=== PATIENT | male | born 1950 | race Caucasian/White ===

== ENCOUNTER → 2016-06-13 09:13 | Outpatient (CLI) | payer MEDICARE | END | disposition home or self-care (01) | LOC: D.RT 06-09 10:00 → D.RAD 06-09 11:15 → D.LAB 06-09 11:30 → D.RT 09:13 | DX: J44.9 Chronic obstructive pulmonary disease, unspecified (principal) ==

== ENCOUNTER → 2016-07-17 09:42 | Outpatient (CLI) | payer MEDICARE | END | disposition home or self-care (01) | LOC: D.US 07-10 11:30 | DX: I70.213 Atherosclerosis of native arteries of extremities with intermittent claudication, bilateral legs (principal) ==

== ENCOUNTER → 2016-08-01 06:58 | Outpatient (CLI) | payer MEDICARE | END | disposition home or self-care (01) | LOC: D.CT 06:58 | DX: I73.9 Peripheral vascular disease, unspecified (principal); R94.2 Abnormal results of pulmonary function studies ==

== ENCOUNTER 2016-10-09 06:30 | Outpatient (CLI) | payer MEDICARE ==
[~2016-10-09] VITALS: Ht 170.2 cm; Wt 100.0 kg
--- NOTE | ~2016-10-09 | HEMODYNAMI ---
PATIENT:JUD RIOS MEDICAL RECORD: [id number] : 46 LOCATION:[facility] ADMISSION DATE: 10/09/16 Generatedon:10/09/201611:41 Patient name: JUD RIOS Patient #: [id number] SSN: : 1950 Date of study: 10/09/2016 Page: Of Hemodynamic Procedure Report Patient Data Patient Demographics Procedure consent was obtained First Name: JUD Gender: Male Last Name: GABRIEL : 1950 [facility] Initial: TRISTON Age: 66 year(s) Patient #: [id number] Race: Unknown Additional ID: [id number] Contact details Address: [address] [place] [address] State: [place] City: [place] Zip code: [address] Past Medical History Allergies: No known allergies Admission Admission Data Admission Date: 10/09/2016 Admission Time: 6:30 Procedure Procedure Types Cath Procedure Peripheral Cath Diagnostic Procedure Cath Peripheral Abd/Extremity Extremities Bilat Lower Extremity Procedure Description Procedure Date Procedure Date: 10/09/2016 Procedure Start Time: 10:34 Procedure Staff Name Function Keri Hodgson RT Flat Folding Machine Operator Keri Hodgson RT Monitor Jesús Galarza RT Scrub Samir Liz MD Performing Physician Zahida Hidalgo RN Nurse Procedure Data Cath Procedure Fluoroscopy Diagnostic fluoroscopy Total fluoroscopy Time: 9.3 time: 9.3 min min Diagnostic fluoroscopy Total fluoroscopy dose: 771 dose: 771 mGy mGy Contrast Material Contrast Material Type Amount (ml) Isovue 300 65 Entry Location Entry Primary Successful Side Size Upsize Upsize Entry Closure Succes sful Closure Location (Fr) 1 (Fr) 2 (Fr) Remarks Device Remarks Femoral Right artery Femoral Mynx artery Nathaniel 6Fr/7Fr Diagnostic catheters Device Type Used For End Catheter Placement Diagnostic 5Fr IMT Catheter Procedure Medications Medication Administration Route Dosage Nitroglycerin IC/IA I.A. 300 mcg Heparin Bolus I.V. 5000 units Fentanyl I.V. 50 mcg Versed I.V. 1 mg Fentanyl I.V. 50 mcg Versed I.V. 1 mg Hemodynamics Rest Heart Rate: 98 (bpm) Snapshots Pre Cath Intra NCS Post Cath Vital Signs Time Heart Resp SPO2 NIBP (mmHg) Rhythm Pain Sedation Rate (ipm) (%) Status Level (bpm) 9:52:05 101 14 96 Measuring NSR 0 (11) 10(A) , No pain 9:52:57 99 14 96 211/120(174) NSR 0 (11) 10(A) , No pain 9:57:39 97 26 97 200/108(157) NSR 0 (11) 10(A) , No pain 10:02:20 97 20 95 213/117(156) NSR 0 (11) 10(A) , No pain 10:07:07 123 18 96 196/113(158) NSR 0 (11) 10(A) , No pain 10:12:14 97 29 96 183/100(146) NSR 0 (11) 10(A) , No pain 10:16:51 96 18 95 185/105(153) NSR 0 (11) 10(A) , No pain 10:21:27 97 21 96 177/102(144) NSR 0 (11) 10(A) , No pain 10:25:59 97 17 96 176/98(134) NSR 0 (11) 10(A) , No pain 10:30:24 99 14 92 171/96(141) NSR 0 (11) 10(A) , No pain 10:34:54 96 14 94 185/104(151) NSR 0 (11) 10(A) , No pain 10:39:20 13 93 164/99(129) NSR 0 (11) 10(A) , No pain 10:43:48 95 15 93 158/88(122) NSR 0 (11) 9(A) , No pain 10:48:13 97 13 95 166/96(130) NSR 0 (11) 9(A) , No pain 10:52:41 99 17 94 177/91(130) NSR 0 (11) 9(A) , No pain 10:57:03 99 17 95 157/89(118) NSR 0 (11) 9(A) , No pain 11:01:25 104 18 95 140/75(103) NSR 0 (11) 9(A) , No pain 11:05:41 102 20 95 138/71(102) NSR 0 (11) 9(A) , No pain 11:09:53 99 19 96 132/76(111) NSR 0 (11) 9(A) , No pain 11:14:13 93 18 96 149/76(111) NSR 0 (11) 10(A) , No pain 11:18:29 93 19 94 130/70(109) NSR 0 (11) 10(A) , No pain 11:22:42 80 19 95 116/69(86) NSR 0 (11) 10(A) , No pain 11:26:55 88 23 94 114/67(78) NSR 0 (11) 10(A) , No pain 11:31:09 91 20 94 127/71(98) NSR 0 (11) 10(A) , No pain Medications Time Medication Route Dose Verified Delivered Reason Notes Ef fectiveness by by 10:35:16 Fentanyl I.V. 50 Zahida Zahida for sedation mcg Rocky Hidalgo RN RN 10:35:27 Versed I.V. 1 mg Zahida Zahida for sedation Rocky Hidalgo RN RN 10:40:09 Versed I.V. 1 mg Zahida Zahida for sedation Rocky Hidalgo RN RN 10:40:43 Fentanyl I.V. 50 Zahida Zahida for sedation mcg Rocky Hidalgo RN RN 10:55:37 Heparin Bolus I.V. 5000 Zahida Zahida for units Rocky Hidalgo anticoagulation RN RN 11:02:04 Nitroglycerin I.A. 300 Zahida Samir for IC/IA mcg Rocky braun RN, MD Procedure Log Time Note 8:54:43 Use device set IR Diagnostic 9:46:55 Bag Decanter opened to sterile field. 9:46:55 Sterile Angiographic Pack opened to sterile field. 9:46:57 Acist Hand Control opened to sterile field. 9:46:57 Acist Manifold opened to sterile field. 9:46:59 Acist Syringe opened to sterile field. 9:47:00 Micropuncture VSI 4FR kit opened to sterile field. 9:47:01 Cook BENTSON 145cm guide wire opened to sterile field. 9:47:02 Terumo 5Fr [place] Sheath opened to sterile field. 9:47:04 TUBING, CONTRAST INJCTN HI PRES opened to sterile field. 9:47:17 Cook AGUILAR 260 guide wire opened to sterile field. 9:47:[address] 260 .035 glide wire opened to sterile field. 9:47:25 Time tracking: Regular hours 9:47:41 Patient received from Outpatients to IR Alert and oriented. Tansferred to table in Supine position. 9:47:47 Signed procedure consent form obtained from patient. 9:48:01 H&P Date Dictated: 10/09/2016 Within 30 days and on chart.. 9:48:04 Pre-op teaching completed and patient verbalized understanding. 9:48:04 Pre-procedure instructions explained to patient. 9:48:07 Family in waiting room. 9:48:09 Patient NPO since Midnight. 9:48:17 Patient allergic to No known allergies 9:48:22 Is the patient allergic to Iodine/contrast media? No. 9:48:25 Is patient on blood thinner?Yes 9:48:29 Patient diabetic? Yes. 9:48:32 If diabetic: On Metformin? No 9:48:36 - 9:48:38 ----Pre-sedation anethsthesia assessment.---- 9:48:42 Previous problem with sedation/anesthesia? No ? 9:48:45 Snore? Yes 9:48:48 Deviated septum? No 9:48:51 Opens mouth fully? Yes 9:48:54 Sticks out tongue? Yes 9:49:02 Airway obstruction? Yes copd, cad 9:49:09 Dentures? No ? 9:49:13 - 9:49:17 Pre procedure: right dorsailis pedis pulse Doppler 9:49:21 Pre procedure: left dorsailis pedis pulse Doppler 9:49:25 Pre procedure: right posterior tibial pulse Doppler 9:49:29 Pre procedure: left posterior tibial pulse Doppler 9:49:46 IV patent on arrival in left wrist with 0.9% NaCl at O. 9:49:58 Right groin area was prepped with chlora-prep and draped in sterile fashion 9:50:01 - 9:50:07 ECG and BP/O2 sat monitors applied to patient. 9:50:17 Vital chart was started 9:50:19 Baseline sample Acquired. 9:50:21 - 10:06:47 BasixTOUCH Inflation Syringe opened to sterile field. 10:06:49 Terumo 6Fr [place] Destination Sheath opened to sterile field. 10:06:54 A Diagnostic 5Fr IMT Catheter was advanced over the wire and used for . 10:16:03 Alarms reviewed by Jenae Esquivel 10:16:04 Sharps counted by scrub and verified by Joseph 10:16:07 - 10:16:27 Right groin area was prepped with chlora-prep and draped in sterile fashion 10:31:43 Physician arrived 10:34:05 --------ALL STOP TIME OUT------ 10:34:06 Final Timeout: patient, procedure, and site verified with staff and physician. All members of the team are in agreement. 10:34:15 Physical assessment completed. ASA score P 3 - A patient with severe systemic disease as per Samir Liz MD. 10:34:21 Sedation plan: IV Moderate Sedation Versed, Fentanyl 10:34:27 Full Disclosure recording started 10:34:27 Procedure started. 10:34:31 Local anesthetic to right femoral artery with Lidocaine 1% by Samir Liz MD.INITIAL ACCESS ONLY 10:35:16 Fentanyl 50 mcg I.V. was administered by Zahida Hidalgo RN; for sedation; 10:35:27 Versed 1 mg I.V. was administered by Zahida Hidalgo RN; for sedation; 10:40:09 Versed 1 mg I.V. was administered by Zahida Hidalgo RN; for sedation; 10:40:43 Fentanyl 50 mcg I.V. was administered by Zahida Hidalgo RN; for sedation; 10:45:42 Arterial access obtained using ultrasound guidance. 10:45:57 A sheath was inserted into the Right Femoral artery 10:46:23 Angiography was performed. 10:49:27 CXI SUPPORT .035 135 CM STR catheter opened to sterile field. 10:52:28 Turbohawk 1 Large Atherectomy catheter opened to sterile field. 10:55:37 Heparin Bolus 5000 units I.V. was administered by Zahida Hidalgo RN; for anticoagulation; 10:56:20 Tavares Sci Choice PT Extra Support J 300cm .014 gu opened to sterile field. 11:02:04 Nitroglycerin IC/IA 300 mcg I.A. was administered by Samir Liz MD; for vasodilation; 11:15:45 Inflation number: 1 A IN.PACT Admiral 6.0 x 120 x 135 DCB Balloon was prepped and advanced across the Undefined1, then inflated to 6 KRISTAN for 3:00 (min:sec). 11:22:39 MYNX ATMOSPHERIC CHEMIST 6FR/7FR opened to sterile field. 11:22:43 Procedure ended.(Physican Out) 11:23:13 Sheath removed intact; hemostasis achieved with Mynx Nathaniel 6Fr/7Fr to the Femoral artery. 11:23:13 A sheath was inserted into the Femoral artery 11:23:27 Fluoroscopy time 09.30 minutes. 11:23:33 Flurop Dose total: 771 11:23:33 Fluoroscopy dose: 771 mGy 11:23:38 Contrast amount:Isovue 300 65ml. 11:23:41 Sharps counted by scrub and verified by R.N. 11:34:35 Procedure and supply charges have been captured, reviewed, submitted an d are correct. 11:34:44 Post Procedure Pulses reassessed and unchanged 11:36:01 Vital chart was stopped 11:36:05 Full Disclosure recording stopped Intervention Summary Intervention Notes Time ActionType Lesion and Equipment Action# Pressure Duration Attributes Used 11:15:45 Inflate Undefined1 IN.PACT 1 6 02:46 balloon Admiral 6.0 x 120 x 135 DCB Balloon Device Usage Item Name Manufacture Quantity Catalog Number Hospital Part Current Min imal Lot# / Charge Number Stock Stock Serial# Code Sterile [place] 1 [id number] 5 Angiographic Health Pack Bag Decanter Microtek 1 [id number] 82094 703253 5 Medical Inc. Acist Acist 1 53464 229628 667215 038715 5 Manifold Medical Systems Inc Acist Hand Acist 1 31983 007734 386879 738097 5 Control Medical Systems Inc Acist Syringe Acist 1 34781 993253 003379 723346 20 Medical Systems Inc Micropuncture VSI VASCULAR 1 7266V 916342 372441 5 VSI 4FR kit SOLUTIONS [facility] 1 [id number] 393453 584589 5 [id number] 145cm guide wire Terumo 5Fr Terumo 1 [id number] 116025 031849 934550 40 [place] Sheath TUBING, Merit 1 [id number] 337422 437887 723729 5 CONTRAST Medical INJCTN HI PRES [facility] 1 [id number] 457282 903179 5 [id number] 260 guide wire [facility] 1 [id number] 266796 947576 5 [id number] ROADRUNNER 260 .035 glide wire BasixTOUCH Merit 1 [id number] 624616 093317 387671 5 Inflation Medical Syringe Terumo 6Fr Terumo 1 RSR01 102619 09022 713608 5 [place] Destination Sheath Diagnostic Tavares 1 [id number] 062388 362766 85116 5 5Fr Asthmatracker Scientific Catheter CXI SUPPORT [facility] 1 [id number] 653013 016472 5 6797558 .035 135 CM STR catheter Turbohawk 1 Ev3 1 H1-M 162675 258806 225109 5 [id number] Large Atherectomy catheter Tavares Sci Tavares 1 [id number] 649229 715541 693599 5 Choice PT Scientific Extra Support J 300cm .014 gu IN.PACT Medtronic 1 [id number] 860489 440276 151824 5 [id number] Admiral 6.0 x 120 x 135 DCB Balloon MYNX ATMOSPHERIC CHEMIST Access 1 [id number] 557720 400589 5 6FR/7FR Closure Signature Audit [place] Stage Time Signature Unsigned Intra-Procedure 10/09/2016 Keri Hodgson RT(R) 11:35:58 AM RT(R) 10/09/2016 11:40:13 AM Intra-Procedure 10/09/2016 Keri Hodgson 11:41:23 AM RT(R) Signatures Monitor : Keri Hodgson RT Signature : Date : Time : [place] [id number] [facility] [place] [address]
[2016-10-09] MEDS ORDERED: BREO ELLIPTA 11 EACH INH (08:24)
[2016-10-09] MEDS ORDERED: PROAIR HFA8.5 GM INH (08:25)
[2016-10-09] MEDS ORDERED: IPRAT-ALBUT 0.5-3 ML UPD (08:26)
[2016-10-09 08:35] VITALS: BP 159/84; Ht 170.2 cm; Wt 100.0 kg
[2016-10-09 08:56] LABS: BASOPHILS 0.2 % (0-2); EOSINOPHILS 0.3 % (0-7); HEMATOCRIT 47.4 % (42.0-54.0); HEMOGLOBIN 15.4 g/dL (13.5-17.5); IMMATURE GRANULOCYTES 0.5 % (0-5); LYMPHOCYTES 22.9 % (15-50); MCH 33.5 pg (26.0-34.0); MCHC 32.5 g/dL (31.0-37.0); MEAN PLATELET VOLUME 11.1 fL (7.4-10.4); NEUTROPHILS 67.1 % (40-80); PLATELET COUNT 214 10x3/uL (130-400); WBC 8.8 10x3/uL (4.8-10.8)
[2016-10-09 09:09] LABS: INR 1.01 (0.85-1.17); PROTIME 13.2 SECONDS (11.6-15.0)
[2016-10-09 09:10] LABS: APTT 33.6 SECONDS (22.8-39.4)
[2016-10-09 09:11] LABS: CALC OSMOLALITY 278 mosm/kg (275-300); CALCIUM 8.8 mg/dL (8.5-10.1); CARBON DIOXIDE 26.7 mmol/L (21.0-32.0); CHLORIDE - SERUM 102 mmol/L (98-107); CREATININE - SERUM 0.8 mg/dL (0.6-1.3); GLUCOSE 153 mg/dL (74-106); SODIUM 139 mmol/L (136-145); UREA NITROGEN 7 mg/dL (7-18); eGFR NON AFRICAN AMERICAN > 90 mL/min (90-120)
[2016-10-09 16:39] LABS: PLT FUNCT.(P2Y12) PLAVIX 203 PRU (194-418)
--- NOTE | 2016-10-09 19:57 | NUR ---
1210 ICE PACK APPLIED TO RT GROIN 1225 REGULAR DIET TRAY PROVIDED PT SITTING AT 30 DEGREES SISTER ASSISTING PT W/FEEDING 1555 PIV DC W/CATHETER TIP INTACT NATHANIEL WELL 1600 PT OOB TO BATHROOM AND THEN TO DRESS GROIN W/DRESSING GAUZE INTACT NO DRAINAGE NOTED PT DENIES ANY DIZZINESS NOR PAIN TO GROIN. 1610 PT IN WC ESCORTED OUT TO CAR W/SISTER DRIVING
== END 2016-10-09 16:10 | disposition home or self-care (01) ==
LOC: D.OPS 06:30 → D.RAD 09:00 → D.OPS 16:10
PROVIDERS: Radiology Diagnostic Radiology
DX: I70.212 Atherosclerosis of native arteries of extremities with intermittent claudication, left leg (principal); Z79.82 Long term (current) use of aspirin; Z79.02 Long term (current) use of antithrombotics/antiplatelets; Z79.891 Long term (current) use of opiate analgesic; Z79.899 Other long term (current) drug therapy; Z01.812 Encounter for preprocedural laboratory examination

== ENCOUNTER 2016-10-20 05:45 | Outpatient (CLI) | payer MEDICARE ==
[~2016-10-20] VITALS: Ht 170.2 cm; Wt 100.0 kg
--- NOTE | ~2016-10-20 | HEMODYNAMI ---
PATIENT:JUD RIOS MEDICAL RECORD: [id number] : 46 LOCATION:DCAMMY ADMISSION DATE: 10/20/16 Generatedon:10/20/20169:51 Patient name: JUD RIOS Patient #: [id number] SSN: : 1950 Date of study: 10/20/2016 Page: Of Hemodynamic Procedure Report Patient Data Patient Demographics Procedure consent was obtained First Name: JUD Gender: Male Last Name: GABRIEL : 1950 [facility] Initial: TRISTON Age: 66 year(s) Patient #: [id number] Race: Unknown Additional ID: [id number] Contact details Address: [address] [place] [address] State: [place] City: [place] Zip code: [address] Past Medical History Allergies: No known allergies Admission Admission Data Admission Date: 10/20/2016 Admission Time: 5:45 Procedure Procedure Types Cath Procedure Peripheral Cath Diagnostic Procedure Miscellaneous Procedure Description Procedure Date Procedure Date: 10/20/2016 Procedure Start Time: 8:30 Procedure Staff Name Function Samir Liz MD Performing Physician Jesús Galarza RT Scrub Jesús Galarza RT Monitor Zahida Hidalgo RN Nurse Procedure Data Cath Procedure Fluoroscopy Diagnostic fluoroscopy Total fluoroscopy Time: 8.8 time: 8.8 min min Diagnostic fluoroscopy Total fluoroscopy dose: 201 dose: 201 mGy mGy Contrast Material Contrast Material Type Amount (ml) Isovue 300 50 Entry Location Entry Primary Successful Side Size Upsize Upsize Entry Closure Succes sful Closure Location (Fr) 1 (Fr) 2 (Fr) Remarks Device Remarks Femoral Right 5 Fr Mynx artery Cloth Finishing Range Operator 6Fr/7Fr Diagnostic catheters Device Type Used For End Catheter Placement Diagnostic 5Fr IMT Catheter Procedure Medications Medication Administration Route Dosage Fentanyl I.V. 100 mcg Versed I.V. 1 mg Heparin Bolus I.V. 5000 units Nitroglycerin IC/IA I.A. 300 mcg Nitroglycerin IC/IA I.A. 200 mcg Hemodynamics Rest Heart Rate: 100 (bpm) Snapshots Pre Cath Intra NCS Post Cath Vital Signs Time Heart Resp SPO2 NIBP (mmHg) Rhythm Pain Sedation Rate (ipm) (%) Status Level (bpm) 8:03:32 82 22 94 155/93(134) NSR 0 (11) 10(A) , No pain 8:07:48 89 17 96 169/100(129) NSR 0 (11) 10(A) , No pain 8:12:08 87 18 97 166/93(124) NSR 0 (11) 10(A) , No pain 8:16:26 89 17 97 175/96(143) NSR 0 (11) 10(A) , No pain 8:20:49 90 17 98 170/97(128) NSR 0 (11) 10(A) , No pain 8:25:09 92 17 97 159/96(130) NSR 0 (11) 10(A) , No pain 8:30:34 92 18 97 169/90(136) NSR 0 (11) 10(A) , No pain 8:34:59 88 18 97 178/92(126) NSR 0 (11) 10(A) , No pain 8:39:10 87 17 97 159/96(121) NSR 0 (11) 10(A) , No pain 8:43:28 91 16 95 163/94(138) NSR 0 (11) 10(A) , No pain 8:47:49 93 13 92 169/97(133) NSR 0 (11) 10(A) , No pain 8:52:07 93 13 93 169/91(140) NSR 0 (11) 10(A) , No pain 8:56:25 95 13 93 165/93(130) NSR 0 (11) 10(A) , No pain 9:00:49 97 12 94 170/82(130) NSR 0 (11) 10(A) , No pain 9:05:01 98 17 92 149/85(127) NSR 0 (11) 10(A) , No pain 9:10:14 100 19 90 138/79(107) NSR 0 (11) 10(A) , No pain 9:14:30 101 18 90 150/74(108) NSR 0 (11) 10(A) , No pain 9:18:51 102 18 89 142/80(117) NSR 0 (11) 10(A) , No pain 9:23:00 101 19 90 145/81(126) NSR 0 (11) 10(A) , No pain 9:27:10 99 19 91 144/81(108) NSR 0 (11) 10(A) , No pain 9:31:24 98 19 93 150/87(120) NSR 0 (11) 10(A) , No pain 9:35:38 97 22 92 161/88(110) NSR 0 (11) 10(A) , No pain 9:40:39 97 22 93 158/88(111) NSR 0 (11) 10(A) , No pain 9:44:59 97 20 94 156/89(137) NSR 0 (11) 10(A) , No pain 9:49:14 106 21 96 163/92(126) NSR 0 (11) 10(A) , No pain Medications Time Medication Route Dose Verified Delivered Reason Notes Eff ectiveness by by 8:25:05 Fentanyl I.V. 100 Zahida Zahida mcg Rocky Hidalgo RN RN 8:30:49 Versed I.V. 1 mg Zahida Zahida for sedation Rocky Hidalgo RN RN 8:50:06 Heparin Bolus I.V. 5000 Zahida Zahida for units Rocky Hidalgo anticoagulation RN RN 9:05:23 Nitroglycerin I.A. 300 Zahida Samir for IC/IA mcg Rocky Liz vasodilation CICI PALACIOS 9:24:25 Nitroglycerin I.A. 200 Zahidajessica Dawson for IC/IA mcg Rocky Liz vasodilation CICI PALACIOS Procedure Log Time Note 7:50:48 Jesús Galarza RT (R) (CV) sent for patient. Start room use. 7:50:57 Time tracking: Regular hours 7:51:02 Plan of Care:Hemodynamics will remain stable., Cardiac rhythm will remain stable., Comfort level will be maintained., Respiratory function will remain adequate., Patient/ family verbilizes understanding of procedure., Procedure tolerated without complication., Recovers from procedure without complications.. 7:51:08 Patient received from Outpatients to IR Alert and oriented. Tansferred to table in Supine position. 7:51:09 Correct patient and procedure confirmed by team. 7:51:11 Signed procedure consent form obtained from patient. 7:51:12 ECG and BP/O2 sat monitors applied to patient. 7:51:14 Full Disclosure recording started 7:51:15 7:51:15 7:51:18 H&P Date Dictated: 10/20/2016 H&P Addendum completed by physician on day of procedure. (MUST COMPLETE FOR ALL OUTPATIENTS). 7:51:19 Pre-procedure instructions explained to patient. 7:51:19 Pre-op teaching completed and patient verbalized understanding. 7:51:21 Family in waiting room. 7:51:26 Is the patient allergic to Iodine/contrast media? No. 7:51:29 Is patient on blood thinner?Yes 7:51:32 Patient diabetic? Yes. 7:51:33 If diabetic: On Metformin? No 7:51:34 7:51:35 ----Pre-sedation anethsthesia assessment.---- 7:51:37 Previous problem with sedation/anesthesia? No ? 7:51:38 Snore? Yes 7:51:39 Sleep apnea? No 7:51:41 Deviated septum? No 7:51:42 Opens mouth fully? Yes 7:51:43 Sticks out tongue? Yes 7:51:48 Airway obstruction? Yes copd 7:51:51 Dentures? No ? 7:51:52 7:56:25 Pre procedure: right dorsailis pedis pulse Doppler 7:56:28 Pre procedure: left dorsailis pedis pulse 1+ Palpable, but thready & weak; easily obliterated 7:56:31 Pre procedure: right posterior tibial pulse Doppler 7:56:34 Pre procedure: left posterior tibial pulse Doppler 7:56:35 Sharps counted by scrub and verified by R.N. 7:56:36 Alarms reviewed by RObi N. 7:56:39 Bilateral groins area was prepped with chlora-prep and draped in sterile fashion 7:56:45 Patient pain scale 0/10 no pain. 7:56:52 IV patent on arrival in right forearm with 0.9% NaCl at [facility]. 7:56:58 Use device set IR Diagnostic 7:56:59 Sterile Angiographic Pack opened to sterile field. 7:57:00 Bag Decanter opened to sterile field. 7:57:01 Acist Manifold opened to sterile field. 7:57:02 Acist Hand Control opened to sterile field. 7:57:02 Acist Syringe opened to sterile field. 8:02:19 Baseline sample Acquired. 8:02:19 Vital chart was started 8:02:23 Rhythm: sinus rhythm 8:25:05 Fentanyl 100 mcg I.V. was administered by Zahida Hidalgo RN; ; 8:27:34 Physician arrived 8:27:35 --------ALL STOP TIME OUT------ 8:27:36 Final Timeout: patient, procedure, and site verified with staff and physician. All members of the team are in agreement. 8:27:37 Bilateral groins site verified by team. 8:27:44 Physical assessment completed. ASA score P 3 - A patient with severe systemic disease as per Samir Liz MD. 8:27:48 Sedation plan: IV Moderate Sedation Versed, Fentanyl 8:30:10 Procedure started. 8:30:14 Local anesthetic to left femerol artery with Lidocaine 1% by Samir Liz MD.INITIAL ACCESS ONLY 8:30:49 Versed 1 mg I.V. was administered by Zahida Hidalgo RN; for sedation; 8:30:52 Cook BENTSON 145cm guide wire opened to sterile field. 8:30:52 TUBING, CONTRAST INJCTN HI PRES opened to sterile field. 8:30:52 Terumo 5Fr [place] Sheath opened to sterile field. 8:30:53 Micropuncture VSI 4FR kit opened to sterile field. 8:30:54 CXI SUPPORT .035 135 CM STR catheter opened to sterile field. 8:30:[address] 260 .035 glide wire opened to sterile field. 8:30:57 A Diagnostic 5Fr IMT Catheter was advanced over the wire and used for . 8:30:58 [employer] Choice PT Extra Support J 300cm .014 gu opened to sterile field. 8:30:59 Cook AGUILAR 260 guide wire opened to sterile field. 8:31:00 Turbohawk 1 Large Atherectomy catheter opened to sterile field. 8:31:[address] 260 .035 glide wire opened to sterile field. 8:31:02 Terumo 6Fr [place] Destination Sheath opened to sterile field. 8:31:14 A 5 Fr sheath was inserted into the Right Femoral artery 8:50:06 Heparin Bolus 5000 units I.V. was administered by Zahida Hidalgo RN; for anticoagulation; 9:05:23 Nitroglycerin IC/IA 300 mcg I.A. was administered by Samir Liz MD; for vasodilation; 9:17:10 Inflation number: 1 A IN.PACT Admiral 5.0 x 40 x 135 DCB Balloon was prepped and advanced across the Distal Superfical Femoral, Right, then inflated to 0 KRISTAN for 3:37 (min:sec). 9:23:02 Inflation number: 1 A IN.PACT Admiral 6.0 x 40 x 135 DCB Balloon was prepped and advanced across the Distal Superficial Femoral, Right, then inflated to 8 KRISTAN for 3:34 (min:sec). 9:24:25 Nitroglycerin IC/IA 200 mcg I.A. was administered by Samir Liz MD; for vasodilation; 9:24:55 Terumo 6Fr [place] Sheath opened to sterile field. 9:32:47 MYNX CODING TEAM LEAD 6FR/7FR opened to sterile field. 9:33:01 Sheath removed intact; hemostasis achieved with Mynx Cloth Finishing Range Operator 6Fr/7Fr to the Right Femoral artery. 9:35:44 Procedure ended.(Physican Out) 9:36:59 Fluoroscopy time 08.80 minutes. 9:37:03 Fluoroscopy dose: 201 mGy 9:37:03 Flurop Dose total: 201 9:42:11 Contrast amount:Isovue 300 50ml. 9:42:13 Sharps counted by scrub and verified by R.N. 9:42:15 Insertion/operative site no bleeding no hematoma. 9:42:20 Post-op/insertion site Left Femoral artery dressed using a 4 x 4 and Tegaderm. 9:43:08 Post procedure: right dorsailis pedis pulse 2+ Normal; easily identifiable; not easily obliterated. 9:43:17 Post procedure: left dorsailis pedis pulse 2+ Normal; easily identifiable; not easily obliterated. 9:43:25 Post procedure: left dorsailis pedis pulse Doppler. 9:43:37 Post procedure: right posterior tibial pulse 2+ Normal; easily identifiable; not easily obliterated. 9:43:40 Post procedure: left posterior tibial pulse Doppler. 9:44:02 Post-procedure physical assessment completed. ASA score P 3 - A patient with severe systemic disease as per Samir Liz MD. 9:44:05 Post procedure instruction explained to patient.Patient verbalizes understanding. 9:44:06 Procedure and supply charges have been captured, reviewed, submitted and are correct. 9:50:36 Patient transfered to Outpatients with Bed. 9:50:48 Report given to Outpatients. 9:51:40 Vital chart was stopped Intervention Summary Intervention Notes Time ActionType Lesion and Equipment Action# Pressure Duration Attributes Used 9:17:10 Inflate Distal IN.PACT 1 0 03:37 balloon Common Admiral Femoral, 5.0 x 40 Right x 135 DCB Balloon 9:23:02 Inflate Distal IN.PACT 1 8 03:34 balloon Superficial Admiral Femoral, 6.0 x 40 Right x 135 DCB Balloon Device Usage Item Name Manufacture Quantity Catalog Number Hospital Part Current Min imal Lot# / Charge Number Stock Stock Serial# Code Sterile Cardinal 1 [id number] 5 Angiographic Health Pack Bag Decanter Microtek 1 [id number] 46631 683180 5 Medical Inc. Acist Acist 1 09321 384221 367887 517011 5 Manifold Medical Systems Inc Acist Hand Acist 1 09917 410352 066441 361097 5 Control Medical Systems Inc Acist Syringe Acist 1 08032 560043 167340 640382 20 Medical Systems Inc [place] JOHN [facility] 1 [id number] 550423 152126 5 [id number] 145cm guide wire TUBING, Merit 1 [id number] 060113 976560 142264 5 CONTRAST Medical INJCTN HI PRES Terumo 5Fr Terumo 1 [id number] 584435 660005 070840 40 [place] Sheath Micropuncture VSI VASCULAR 1 7266V 321149 119916 5 VSI 4FR kit SOLUTIONS CXI SUPPORT [facility] 1 E51971 591883 082697 5 1347409 .035 135 CM STR catheter [facility] 2 [id number] 168556 468302 5 [id number] ROADRUNNER [id number] 260 .035 glide wire Diagnostic [place] 1 [id number] 908898 495102 86021 5 5Fr IMT Scientific Catheter [place] Sci [place] 1 [id number] 951404 572218 436747 5 Choice PT Scientific Extra Support J 300cm .014 gu [facility] 1 [id number] 719981 614284 5 260 guide wire Turbohawk 1 Ev3 1 H1-M 644442 520492 265866 5 Large Atherectomy catheter Terumo 6Fr Terumo 1 RSR01 697460 83798 473513 5 [place] Destination Sheath IN.PACT Medtronic 1 [id number] 995533 939923 742886 5 [id number] Admiral 5.0 x 40 x 135 DCB Balloon IN.PACT Medtronic 1 [id number] 788114 174277 225255 5 [id number] Admiral 6.0 x 40 x 135 DCB Balloon Terumo 6Fr Terumo 1 [id number] 737757 815617 775645 40 [place] Sheath MYNX CODING TEAM LEAD Access 1 [id number] 035755 718595 5 [id number] 6FR/7FR Closure Signature Audit Grant Stage Time Signature Unsigned Intra-Procedure 10/20/2016 Jesús 9:51:37 AM Geovanni GONZÁLES (R) (CV) Signatures Monitor : Jesús Signature : Geovanni RT Date : Time : [address] [place] [address]
[~2016-10-20 05:45] MED LIST: BREO ELLIPTA 11 EACH INH; IPRAT-ALBUT 0.5-3 ML UPD; PROAIR HFA8.5 GM INH
[2016-10-20 06:39] LABS: CALC OSMOLALITY 275 mosm/kg (275-300); CALCIUM 8.9 mg/dL (8.5-10.1); CARBON DIOXIDE 28.2 mmol/L (21.0-32.0); CHLORIDE - SERUM 100 mmol/L (98-107); CREATININE - SERUM 0.8 mg/dL (0.6-1.3); GLUCOSE 165 mg/dL (74-106); POTASSIUM - SERUM 4.3 mmol/L (3.5-5.1); SODIUM 137 mmol/L (136-145); UREA NITROGEN 8 mg/dL (7-18); eGFR NON AFRICAN AMERICAN > 90 mL/min (90-120)
[2016-10-20 06:45] LABS: INR 0.97 (0.85-1.17); PROTIME 12.8 SECONDS (11.6-15.0)
[2016-10-20 06:46] LABS: APTT 33.3 SECONDS (22.8-39.4)
[2016-10-20 07:09] LABS: BASOPHILS 0.2 % (0-2); EOSINOPHILS 0.9 % (0-7); HEMATOCRIT 46.6 % (42.0-54.0); HEMOGLOBIN 15.2 g/dL (13.5-17.5); IMMATURE GRANULOCYTES 0.2 % (0-5); LYMPHOCYTES 24.6 % (15-50); MCH 33.4 pg (26.0-34.0); MCHC 32.6 g/dL (31.0-37.0); MCV 102.4 fL (80.0-100.0); MEAN PLATELET VOLUME 11.4 fL (7.4-10.4); MONOCYTES 9.1 % (2-11); PLATELET COUNT 218 10x3/uL (130-400); RBC 4.55 10x6/uL (4.20-6.10); WBC 8.5 10x3/uL (4.8-10.8)
[2016-10-20] MEDS ORDERED: LIPITOR20 MG PO (07:31)
[2016-10-20] MEDS ORDERED: HYDROCODONE-APA1 TAB PO (07:32)
[2016-10-20] MEDS ORDERED: PLAVIX75 MG PO (07:32)
[2016-10-20 07:41] VITALS: BP 144/86; Ht 170.2 cm; Wt 100.0 kg
--- NOTE | 2016-10-20 10:12 | NUR ---
1000 BACK FROM AFRO LEFT GROIN DRESSING C/D/I AND AREA SOFT NO BLEEDING. PP WITH DOPPLER. INSTRUCTED TO KEEP LEGS STRAINGHT AND STAY FLAT. COUGHING SAT 90 % ON 3 L N/C. DR. RODRIGUEZ GAVE ORDER FOR BREATHING TREATMENT. CALLED R/T. TOLD TO HOLD LT GROIN IF HAVING TO COUGH.
--- NOTE | 2016-10-20 10:50 | NUR ---
1045 RECEIVED BREATHING TREATMENT AND PLAVIX. KEEPING LEFT LEG STRAIGHT PP WITH DOPPLER.
--- NOTE | 2016-10-20 11:07 | NUR ---
1100 EYES CLOSED. RESTING.
--- NOTE | 2016-10-20 14:24 | NUR ---
1300 RESP EVEN NONLABORED. LT GROIN NO BLEEDING PPX2 DOPPLER.
--- NOTE | 2016-10-20 14:24 | NUR ---
1200 NO BLEDING LEFT GROIN PULSES PEDAL WITH DOPPLER.
--- NOTE | 2016-10-20 14:25 | NUR ---
1350 VOIDED IV DCD CATHETER INTACT. DISCHRGE INSTRUCTIONS GONE OVER WITH PTIENT AND VERBALLY UNDERSTANDS.
--- NOTE | 2016-10-20 14:25 | NUR ---
1400 TO HOME VIA W/C WITH SPOUSE.
== END 2016-10-20 14:00 | disposition home or self-care (01) ==
LOC: D.OPS 05:45 → D.SP 08:00 → D.OPS 08:00
PROVIDERS: Radiology Diagnostic Radiology
DX: I70.211 Atherosclerosis of native arteries of extremities with intermittent claudication, right leg (principal); Z01.812 Encounter for preprocedural laboratory examination

== ENCOUNTER 2017-07-06 14:16 | Inpatient (IN) | payer MEDICARE ==
[~2017-07-06] VITALS: Ht 170.2 cm; Wt 96.3 kg
--- NOTE | ~2017-07-06 | EC ---
PATIENT:JUD RIOS DATE OF SERVICE: 07/07/17 SEX: M MEDICAL RECORD: [id number] DATE OF : [birth year] LOCATION:D.M2 D.210 AGE OF PATIENT: 67 ADMISSION DATE: 07/07/17 REFERRING PHYSICIAN: INTERPRETING PHYSICIAN: SONG CASTILLO MD ECHOCARDIOGRAM REPORT ECHO CHARGES 4 ECHO COMPLETE Date: 07/08 CLINICAL DIAGNOSIS: CHF ECHOCARDIOGRAPHIC MEASUREMENTS (adult normal given) AC root (d.<3.7cm) 3.4 cm LV Septum d (<1.2 cm> 1.3 cm Valve Excursion 1.6 cm LV Septum (systole) 1.6 cm Left Atria (s.<4.0cm> 3.1 cm LVPW d(<1.2cm) 1.5 cm RV (d.<2.3cm) 3.4 cm LVPW (sytole) 1.8 cm LV diastole(<5.6CM) 3.9 cm MV E-F(>70mm/sec) cm LV systole 2.6 cm LVOT Diameter 1.6 cm MV exc.(>10mm) 2.1 cm Est.ejection fraction (50-75%) % DOPPLER: LVIT cm/sec A 112 cm/sec E 54.0 cm/sec LA cm/sec RVSP 23 mmHg LVOT 106 cm/sec AOP1/2T m/s Asc. Ao 178 cm/sec RVOT 141 cm/sec RA cm/sec PA 171 cm/sec AV Gradient Peak 12.62mmHg AV Mean 5.98 mmHg AV Area 1.4 cm MV Gradient Peak 8.32 mmHg MV Mean 3.41 mmHg MV Area cm COMMENTS: Water Treatment Plant Repairer: Tommy PICKENS Advanced [facility] Registered Nurse: 1 Dr. Castillo TAPE# PACS Pericardial Effusion N DATE OF SERVICE: 07/08/2017 Echocardiogram FINDINGS: 1. Left ventricular chamber size is within normal limits. Left ventricular systolic function is preserved at 50%. 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 2. Left atrium, right atrium, and right ventricular chamber sizes are within normal limits. ECHOCARDIOGRAM REPORT [id number] JUD RIOS 3. Valvular structures have normal structure and motion. 4. Doppler interrogation only reveals mild tricuspid regurgitation, no other valvular insufficiency or stenosis. Pulmonary systolic pressure is normal estimated at 23 mmHg. 5. No evidence of pericardial effusion or left ventricular thrombus. TRANSINT:[id number] Voice Confirmation ID: [id number] DOCUMENT ID: [id number] SONG CASTILLO MD at 0956 CC: [id number] DICTATION DATE: 07/08/17 1333 GRINDING WHEEL OPERATOR: 07/08/17 1824 DIS IN 07/11/17 [place] [id number] [place] [id number]
--- NOTE | ~2017-07-06 | OP ---
PATIENT NAME: JUD RIOS MEDICAL RECORD: [id number] :46 LOCATION:D.M2 D.2104 ADMISSION DATE:07/07/17 SURGEON: ALVERTO GO MD DATE OF OPERATION: 07/07/2017 SURGEON: Alverto Go MD ANESTHESIA: General anesthesia by Corky Sauer CRNA. DIAGNOSIS: Left ureteral stone 6 x 8 mm. PROCEDURES: Cystoscopy, left retrograde pyelogram, left ureteroscopy with holmium laser lithotripsy and stone extraction, left ureteral stent insertion 6-[place]izen [place] x 24 cm with string attached. FINDINGS: Obstructive bladder neck. In the bladder, on cystoscopy there are single ureteral orifices bilaterally and no bladder tumors were seen. On fluoroscopy, a radiodense left distal ureteral stone 6 x 8 mm was seen. SPECIMENS: Left ureteral stone fragments. BLOOD LOSS: None. CLINICAL HISTORY: This is a 67-year-old male with a history of diabetes, hypertension, heavy smoking with COPD and alcoholism, leaving the liver cirrhosis and ascites. He has been complaining of abdominal pain for some time. He has been self medicating this pain with large doses of whiskey on a regular basis. He came in to have this pain investigated. On the CT scan of the abdomen and pelvis, he was found to have a cirrhotic liver with a large amount of intra-abdominal ascites. Left hydronephrosis due to a 6 mm x 8 mm stone in the left proximal ureter was noted. Yesterday, he had paracentesis to remove 9.5 liters of ascites fluid off his abdomen. Today, he is going to have left ureteroscopy to remove the stone. Due to the large size of the stone, I envision that he will need laser lithotripsy to break the stone up into smaller pieces. He is not allergic to any medications. He was given Ancef 1 gram IV salesperson new cars to the OR. DESCRIPTION OF PROCEDURE: The patient was given induction of general anesthesia. He was then placed into dorsal lithotomy position and prepped and draped. Lidocaine jelly was inserted into the urethra. We used a 22.5-[place] cystoscope with 30-degree lens. Penile urethra was nonobstructive. The prostatic lateral lobes are not obstructive. However, he does have quite a large and potentially obstructive bladder neck and median lobe. In the bladder, there are single ureteral orifices on each side. Fluoroscopy was performed and we did not see a stone in the proximal ureter. Going distally, there was a possible stone in the region of the junction between the mid ureter to the distal ureter. In order to confirm this, we inserted a 5-[place] open-ended ureteral catheter into the left ureteral orifice. Diluted contrast was then injected for retrograde pyelogram. This confirmed that the hydroureteronephrosis went down to this radiodensity in the distal ureter. We then inserted with some difficulty a Sensor wire past the stone up into the renal pelvis. The ureteral catheter was then removed, leaving the wire in place. Over the wire, we placed an 18-[place] x 4-cm ureteral dilation balloon. The ureteral orifice was dilated to 12 atmospheres for a few seconds and then deflated. We then moved the balloon more proximally to be just inferior to the OPERATIVE REPORT [id number] JUD RIOS stone. The balloon was then inflated for a few seconds to 10 atmospheres of pressure. The balloon was then completely deflated and removed. We then removed the cystoscope and used the rigid ureteroscope. Following the wire, we identified the stone trapped in ureteral edema. I then introduced a 350 micron laser fiber and we used the holmium laser to quarter up the stone that is to cut the stone phase into quarters segments. Going into the depth of the stone, we managed to break off large sections of the stone. The laser was then put on standby and we used a 3-[place] 0-tip 4 wire basket to remove the large fragments. Going back up with the scope, we then saw that there was still a very large portion of the stone still present. I tried to push it proximally using the tip of the scope. However, this attempt caused the slippage and perforation of the posterior wall of the ureter with the scope. Therefore, the holmium laser was then reintroduced and the remaining stone fragment was then made even smaller. Some of the larger fragments from this were again removed using the basket. I finally managed to push this last remaining large remnant proximally. We were then able to remove it entirely using the 4 wire 0-tip basket. It is extremely long and has a long tail on it, so overall stone length maybe about 1 cm in total. Finally, we had one last look with the ureteroscope and going all the way up to the renal pelvis, we did not see any further stone fragments. The ureteroscope was then removed. The wire was backloaded onto the cystoscope. A 6-[place] x 24 cm ureteral stent was placed over the wire. We made sure that the proximal end of the stent coiled in the renal pelvis. The wire was then completely removed. The distal end was pushed into the bladder using a pusher. The bladder was then emptied through the cystoscope sheath. The scope was then removed. The string on the distal end of the stent comes out of the urethral meatus. This was tied to itself in a knot and cut shorter. The stent will be in place for about 2 weeks' time in order to allow the ureter to heal. I will see him in the office at that point and remove the stent by pulling on the string. TRANSINT:[id number] Voice Confirmation ID: [id number] DOCUMENT ID: [id number] ALVERTO GO MD at 1920 CC: [id number] DICTATION DATE: 07/08/17 1132 LUMBER PLANER: 07/08/[address] [facility] [address] [place] [address]
[~2017-07-06 14:16] MED LIST changes: +HYDROCODONE-APA1 TAB PO; +LIPITOR20 MG PO; +PLAVIX75 MG PO
[2017-07-06 15:21] LABS: UDS - AMPHET NEGATIVE QUAL (NEGATIVE); UDS - BARB NEGATIVE QUAL (NEGATIVE); UDS - BENZO NEGATIVE QUAL (NEGATIVE); UDS - COCAINE NEGATIVE QUAL (NEGATIVE); UDS - OPIATE NEGATIVE QUAL (NEGATIVE); UDS - PCP NEGATIVE QUAL (NEGATIVE); UDS - THC NEGATIVE QUAL (NEGATIVE)
[2017-07-06 15:21] LABS: BASOPHILS 0.2 % (0-2); EOSINOPHILS 0.1 % (0-7); HEMATOCRIT 40.5 % (42.0-54.0); HEMOGLOBIN 14.1 g/dL (13.5-17.5); IMMATURE GRANULOCYTES 0.5 % (0-5); LYMPHOCYTES 12.7 % (15-50); MCH 39.5 pg (26.0-34.0); MCHC 34.8 g/dL (31.0-37.0); MCV 113.4 fL (80.0-100.0); MEAN PLATELET VOLUME 10.3 fL (7.4-10.4); MONOCYTES 11.5 % (2-11); PLATELET COUNT 322 10x3/uL (130-400); RBC 3.57 10x6/uL (4.20-6.10); RDW 13.3 % (11.5-14.5); WBC 18.9 10x3/uL (4.8-10.8)
[2017-07-06 15:30] LABS: APPEARANCE HAZY (CLEAR); BILIRUBIN NEGATIVE (NEGATIVE); COLOR DK YELLOW (YELLOW); GLUCOSE NEGATIVE (NEGATIVE); KETONE NEGATIVE (NEGATIVE); NITRITE NEGATIVE (NEGATIVE); PROTEIN NEGATIVE (NEGATIVE); SPECIFIC GRAVITY 1.025 (1.005-1.020)
[2017-07-06 15:31] LABS: BACTERIA FEW /hpf (NONE SEEN); RED CELLS - URINE 0-5 /hpf (0-5)
[2017-07-06 15:35] LABS: ALBUMIN 2.1 g/dL (3.4-5.0); ALKALINE PHOSPHATASE 137 U/L (46-116); ALT (SGPT) 21 U/L (10-68); BILIRUBIN - TOTAL 1.37 mg/dL (0.2-1.3); CALC OSMOLALITY 264 mosm/kg (275-300); CALCIUM 8.7 mg/dL (8.5-10.1); CARBON DIOXIDE 30.3 mmol/L (21.0-32.0); CHLORIDE - SERUM 91 mmol/L (98-107); CREATININE - SERUM 1.3 mg/dL (0.6-1.3); GLUCOSE 147 mg/dL (74-106); POTASSIUM - SERUM 4.9 mmol/L (3.5-5.1); PROTEIN - SERUM 7.5 g/dL (6.4-8.2); SODIUM 130 mmol/L (136-145); UREA NITROGEN 14 mg/dL (7-18); eGFR NON AFRICAN AMERICAN 58 mL/min (90-120)
[2017-07-06 15:41] LABS: CREATINE KINASE 26 UL (21-232); LIPASE 80 U/L (73-393); PRO BNP 750 pg/mL (0-125)
[2017-07-06 15:46] LABS: TROPONIN-I < 0.017 ng/mL (0.000-0.060)
[2017-07-06 21:14] VITALS: BP 142/67
[2017-07-06] MEDS ORDERED: VENTOLIN HFA18 GM INH (22:52)
[2017-07-07] VITALS (12 sets, daily range): BP systolic 80–151; BP diastolic 33–80; Ht 170.2 cm; Wt 96.3 kg
[2017-07-07 10:53] LABS: BASOPHILS 0.1 % (0-2); EOSINOPHILS 0.1 % (0-7); HEMATOCRIT 38.1 % (42.0-54.0); IMMATURE GRANULOCYTES 0.4 % (0-5); LYMPHOCYTES 10.8 % (15-50); MCH 38.3 pg (26.0-34.0); MCHC 34.1 g/dL (31.0-37.0); MCV 112.4 fL (80.0-100.0); MEAN PLATELET VOLUME 10.4 fL (7.4-10.4); MONOCYTES 11.7 % (2-11); NEUTROPHILS 76.9 % (40-80); PLATELET COUNT 270 10x3/uL (130-400); RBC 3.39 10x6/uL (4.20-6.10); RDW 13.4 % (11.5-14.5)
[2017-07-07 10:58] LABS: ANION GAP 12.5 mmol/L (8-16); CALCIUM 8.2 mg/dL (8.5-10.1); CARBON DIOXIDE 27.1 mmol/L (21.0-32.0); CREATININE - SERUM 1.2 mg/dL (0.6-1.3); INR 1.22 (0.85-1.17); POTASSIUM - SERUM 4.6 mmol/L (3.5-5.1)
[2017-07-07 16:03] LABS: GLUCOSE - BODY FLUID 118 mg/dL
[2017-07-07 16:29] LABS: MESOTHELIALS BF 37 %; NEUT - BF 54 %
[2017-07-08 01:00] VITALS: BP 107/60
[2017-07-08 05:00] VITALS: BP 101/39
[2017-07-08 06:16] LABS: BASOPHILS 0.1 % (0-2); EOSINOPHILS 0.5 % (0-7); HEMATOCRIT 33.9 % (42.0-54.0); HEMOGLOBIN 11.4 g/dL (13.5-17.5); IMMATURE GRANULOCYTES 0.3 % (0-5); LYMPHOCYTES 17.7 % (15-50); MCH 37.9 pg (26.0-34.0); MCHC 33.6 g/dL (31.0-37.0); MCV 112.6 fL (80.0-100.0); MEAN PLATELET VOLUME 10.3 fL (7.4-10.4); MONOCYTES 13.8 % (2-11); NEUTROPHILS 67.6 % (40-80); RBC 3.01 10x6/uL (4.20-6.10); RDW 13.4 % (11.5-14.5)
[2017-07-08 06:19] LABS: PLATELET COUNT 213 10x3/uL (130-400); WBC 10.8 10x3/uL (4.8-10.8)
[2017-07-08 06:31] LABS: % SATURATION 56 % (15-55); IRON 38 ug/dl (35-150); TOTAL IRON BIND CAPACITY 67 ug/dl (260-445); UNSAT IRON BIND CAPACITY 29 ug/dl (150-375)
[2017-07-08 06:49] LABS: ALKALINE PHOSPHATASE 84 U/L (46-116); ALT (SGPT) 12 U/L (10-68); BILIRUBIN - TOTAL 1.06 mg/dL (0.2-1.3); CALC OSMOLALITY 265 mosm/kg (275-300); CARBON DIOXIDE 29.9 mmol/L (21.0-32.0); CHLORIDE - SERUM 98 mmol/L (98-107); CHOL - HDL RATIO 4.9 ratio (2.3-4.9); CHOLESTEROL, TOTAL 74 mg/dL (0-200); FERRITIN 507 ng/mL (3-244); GLUCOSE 89 mg/dL (74-106); HDL CHOLESTEROL 15 mg/dL (32-96); LDL CHOLESTEROL 46 mg/dL (0-100); LDL-HDL RATIO 3.1 ratio (1.5-3.5); MAGNESIUM - SERUM 1.6 mg/dL (1.8-2.4); PHOSPHOROUS 3.3 mg/dL (2.5-4.9); PROTEIN - SERUM 5.6 g/dL (6.4-8.2); SODIUM 133 mmol/L (136-145); TRIGLYCERIDE 65 mg/dL (30-200); UREA NITROGEN 15 mg/dL (7-18); eGFR NON AFRICAN AMERICAN 79 mL/min (90-120)
[2017-07-08 09:53] VITALS: BP 95/53
[2017-07-08 12:35] VITALS: BP 125/79
[2017-07-08 16:30] VITALS: BP 107/65
[2017-07-08 20:00] VITALS: BP 98/59
[2017-07-09 01:00] VITALS: BP 94/52
[2017-07-09 05:00] VITALS: BP 104/62
[2017-07-09 05:15] LABS: BASOPHILS 0.2 % (0-2); EOSINOPHILS 0.5 % (0-7); HEMATOCRIT 34.6 % (42.0-54.0); HEMOGLOBIN 11.8 g/dL (13.5-17.5); IMMATURE GRANULOCYTES 0.4 % (0-5); LYMPHOCYTES 19.1 % (15-50); MCH 38.7 pg (26.0-34.0); MCHC 34.1 g/dL (31.0-37.0); MCV 113.4 fL (80.0-100.0); MEAN PLATELET VOLUME 10.3 fL (7.4-10.4); MONOCYTES 12.2 % (2-11); NEUTROPHILS 67.6 % (40-80); PLATELET COUNT 208 10x3/uL (130-400); RBC 3.05 10x6/uL (4.20-6.10); RDW 13.2 % (11.5-14.5); WBC 12.3 10x3/uL (4.8-10.8)
[2017-07-09 05:52] LABS: ALBUMIN 1.9 g/dL (3.4-5.0); ANION GAP 10.4 mmol/L (8-16); BILIRUBIN - TOTAL 0.88 mg/dL (0.2-1.3); CALCIUM 7.9 mg/dL (8.5-10.1); CARBON DIOXIDE 28.8 mmol/L (21.0-32.0); CREATININE - SERUM 1.1 mg/dL (0.6-1.3); POTASSIUM - SERUM 4.2 mmol/L (3.5-5.1); PROTEIN - SERUM 5.7 g/dL (6.4-8.2)
[2017-07-09 08:30] VITALS: BP 102/60
[2017-07-09 11:28] VITALS: BP 103/66
[2017-07-09 15:45] VITALS: BP 106/59
[2017-07-09 20:29] VITALS: BP 94/51
[2017-07-10 01:05] VITALS: BP 102/60
[2017-07-10 05:58] VITALS: BP 92/50
[2017-07-10 06:32] LABS: BASOPHILS 0.1 % (0-2); EOSINOPHILS 0.5 % (0-7); HEMATOCRIT 36.1 % (42.0-54.0); HEMOGLOBIN 12.1 g/dL (13.5-17.5); IMMATURE GRANULOCYTES 0.3 % (0-5); LYMPHOCYTES 12.9 % (15-50); MCH 37.8 pg (26.0-34.0); MCHC 33.5 g/dL (31.0-37.0); MCV 112.8 fL (80.0-100.0); MEAN PLATELET VOLUME 10.6 fL (7.4-10.4); MONOCYTES 9.8 % (2-11); NEUTROPHILS 76.4 % (40-80); PLATELET COUNT 230 10x3/uL (130-400); WBC 11.6 10x3/uL (4.8-10.8)
[2017-07-10 07:18] LABS: ALBUMIN 1.9 g/dL (3.4-5.0); ANION GAP 8.8 mmol/L (8-16); BILIRUBIN - TOTAL 0.7 mg/dL (0.2-1.3); CALCIUM 8.1 mg/dL (8.5-10.1); CARBON DIOXIDE 27.6 mmol/L (21.0-32.0); CREATININE - SERUM 1.1 mg/dL (0.6-1.3); POTASSIUM - SERUM 4.4 mmol/L (3.5-5.1); PROTEIN - SERUM 5.5 g/dL (6.4-8.2)
[2017-07-10 08:21] VITALS: BP 97/43
[2017-07-10 08:21] LABS: FOLATE (FOLIC ACID) - SERUM 3.3 ng/mL (>3.0)
[2017-07-10 13:51] VITALS: BP 92/47
[2017-07-10 17:01] VITALS: BP 95/51
[2017-07-10 17:13] LABS: HEPATITIS C ANTIBODY 0.1 (0.0-0.9)
[2017-07-10 21:03] VITALS: BP 87/46
[2017-07-11 01:23] VITALS: BP 97/64
[2017-07-11 05:29] VITALS: BP 82/61
[2017-07-11 05:51] LABS: BASOPHILS 0.1 % (0-2); EOSINOPHILS 0.7 % (0-7); HEMATOCRIT 35.7 % (42.0-54.0); HEMOGLOBIN 12.1 g/dL (13.5-17.5); IMMATURE GRANULOCYTES 0.3 % (0-5); MCH 37.7 pg (26.0-34.0); MCHC 33.9 g/dL (31.0-37.0); MCV 111.2 fL (80.0-100.0); MEAN PLATELET VOLUME 10.5 fL (7.4-10.4); MONOCYTES 13.1 % (2-11); NEUTROPHILS 74.8 % (40-80); PLATELET COUNT 223 10x3/uL (130-400); RBC 3.21 10x6/uL (4.20-6.10); RDW 12.8 % (11.5-14.5); WBC 13.6 10x3/uL (4.8-10.8)
[2017-07-11 06:12] LABS: ALBUMIN 1.8 g/dL (3.4-5.0); ANION GAP 10.1 mmol/L (8-16); BILIRUBIN - TOTAL 0.8 mg/dL (0.2-1.3); CALCIUM 8.2 mg/dL (8.5-10.1); CARBON DIOXIDE 29.7 mmol/L (21.0-32.0); CREATININE - SERUM 1.2 mg/dL (0.6-1.3); POTASSIUM - SERUM 4.8 mmol/L (3.5-5.1); PROTEIN - SERUM 5.9 g/dL (6.4-8.2)
[2017-07-11 10:15] VITALS: BP 91/48
[2017-07-11] MEDS ORDERED: LASIX20 MG PO (12:02)
[2017-07-11] MEDS ORDERED: CHRONULAC30 ML PO (12:02)
[2017-07-11] MEDS ORDERED: FLOMAX0.4 MG PO (12:05)
[2017-07-11 12:31] VITALS: BP 90/50
[2017-07-11 13:21] LABS: FUNGUS STAIN Final report (())
[2017-07-19 10:53] LABS: CALCULI - CA OXALATE MONOHYDR 90 % (()); CALCULI - COLOR Brown (()); CALCULI - COMMENT Note: (()); CALCULI - WEIGHT 318.1 mg (())
[2017-08-06 15:20] LABS: FUNGUS MYCOLOGY CULTURE Final report (())
== END 2017-07-11 15:49 | disposition home health service (06) | DRG 669 ==
LOC: D.ER 14:16 → D.M2 17:01 → D.EDHOLD 17:01 → D.M2 17:21 → OBSVTIME 07-07 16:00 → D.M2 07-07 16:24
PROVIDERS: Family Medicine; Internal Medicine Nephrology; Specialist
PROC: 0TC78ZZ Extirpation of Matter from Left Ureter, Via Natural or Artificial Opening Endoscopic (ICD-10-PCS; 2017-07-07)
PROC: 0T778DZ Dilation of Left Ureter with Intraluminal Device, Via Natural or Artificial Opening Endoscopic (ICD-10-PCS; 2017-07-07)
PROC: BT1F1ZZ Fluoroscopy of Left Kidney, Ureter and Bladder using Low Osmolar Contrast (ICD-10-PCS; 2017-07-07)
PROC: 0W9G3ZZ Drainage of Peritoneal Cavity, Percutaneous Approach (ICD-10-PCS; principal; 2017-07-07 10:30)
DX: N13.2 Hydronephrosis with renal and ureteral calculous obstruction (principal); E87.1 Hypo-osmolality and hyponatremia; F17.203 Nicotine dependence unspecified, with withdrawal; E46 Unspecified protein-calorie malnutrition; K70.31 Alcoholic cirrhosis of liver with ascites; F10.20 Alcohol dependence, uncomplicated; K72.90 Hepatic failure, unspecified without coma; E11.9 Type 2 diabetes mellitus without complications; I10 Essential (primary) hypertension; J44.9 Chronic obstructive pulmonary disease, unspecified; K21.9 Gastro-esophageal reflux disease without esophagitis

== ENCOUNTER 2017-07-13 18:40 | Inpatient (IN) | payer MEDICARE ==
[~2017-07-13] VITALS: Ht 170.2 cm; Wt 95.2 kg
[~2017-07-13 18:40] MED LIST changes: +CHRONULAC30 ML PO; +FLOMAX0.4 MG PO; +LASIX20 MG PO; +VENTOLIN HFA18 GM INH
[2017-07-13 19:34] LABS: BASOPHILS 0.2 % (0-2); EOSINOPHILS 0.3 % (0-7); HEMATOCRIT 37.8 % (42.0-54.0); HEMOGLOBIN 13.2 g/dL (13.5-17.5); IMMATURE GRANULOCYTES 0.4 % (0-5); LYMPHOCYTES 13.8 % (15-50); MCH 38.5 pg (26.0-34.0); MCHC 34.9 g/dL (31.0-37.0); MCV 110.2 fL (80.0-100.0); MEAN PLATELET VOLUME 10.6 fL (7.4-10.4); MONOCYTES 12.2 % (2-11); NEUTROPHILS 73.1 % (40-80); PLATELET COUNT 259 10x3/uL (130-400); RBC 3.43 10x6/uL (4.20-6.10); RDW 12.8 % (11.5-14.5); WBC 15.1 10x3/uL (4.8-10.8)
[2017-07-13 19:52] LABS: ANION GAP 14.5 mmol/L (8-16); BILIRUBIN - TOTAL 0.96 mg/dL (0.2-1.3); CALCIUM 8.5 mg/dL (8.5-10.1); CARBON DIOXIDE 25.5 mmol/L (21.0-32.0); CREATININE - SERUM 1.6 mg/dL (0.6-1.3); PROTEIN - SERUM 6.7 g/dL (6.4-8.2)
[2017-07-13 20:01] LABS: APPEARANCE HAZY (CLEAR); COLOR DK YELLOW (YELLOW)
[2017-07-13 20:02] LABS: BILIRUBIN NEGATIVE (NEGATIVE); GLUCOSE NEGATIVE (NEGATIVE); KETONE NEGATIVE (NEGATIVE); NITRITE NEGATIVE (NEGATIVE); PROTEIN 1+ mg/dL (NEGATIVE); UROBILINOGEN NORMAL (NORMAL)
[2017-07-13 20:04] LABS: BACTERIA MODERATE /hpf (NONE SEEN); RED CELLS - URINE >50 /hpf (0-5)
[2017-07-13] MEDS ORDERED: HYDROCODONE-APA1 TAB PO (23:49)
[2017-07-14 01:00] VITALS: BP 109/73
[2017-07-14 04:21] VITALS: Ht 170.2 cm; Wt 95.2 kg
[2017-07-14 05:30] VITALS: BP 136/75
[2017-07-14 08:54] VITALS: BP 124/66
[2017-07-14 10:15] LABS: INR 1.13 (0.85-1.17); PROTIME 14.1 SECONDS (11.6-15.0)
[2017-07-14 12:33] VITALS: BP 134/73
[2017-07-14 16:07] LABS: PROTEIN - BODY FLUID 1.4 G/DL
[2017-07-14 16:34] VITALS: BP 99/48
[2017-07-14 17:31] LABS: MACROPHAGES BF 4 %; MESOTHELIALS BF 14 %; NEUT - BF 72 %
[2017-07-14 20:00] VITALS: BP 103/55
[2017-07-15 01:00] VITALS: BP 85/40
[2017-07-15 05:02] LABS: BASOPHILS 0.2 % (0-2); EOSINOPHILS 0.6 % (0-7); HEMATOCRIT 32.1 % (42.0-54.0); HEMOGLOBIN 11.1 g/dL (13.5-17.5); IMMATURE GRANULOCYTES 0.3 % (0-5); LYMPHOCYTES 20.3 % (15-50); MCH 37.4 pg (26.0-34.0); MCHC 34.6 g/dL (31.0-37.0); MCV 108.1 fL (80.0-100.0); MEAN PLATELET VOLUME 10.7 fL (7.4-10.4); MONOCYTES 14.9 % (2-11); NEUTROPHILS 63.7 % (40-80); PLATELET COUNT 256 10x3/uL (130-400); RBC 2.97 10x6/uL (4.20-6.10); RDW 12.9 % (11.5-14.5); WBC 9.9 10x3/uL (4.8-10.8)
[2017-07-15 05:31] LABS: ALBUMIN 2.3 g/dL (3.4-5.0); ANION GAP 13.3 mmol/L (8-16); BILIRUBIN - TOTAL 0.81 mg/dL (0.2-1.3); CALCIUM 8.2 mg/dL (8.5-10.1); CARBON DIOXIDE 25.7 mmol/L (21.0-32.0); CREATININE - SERUM 1.1 mg/dL (0.6-1.3); MAGNESIUM - SERUM 1.7 mg/dL (1.8-2.4); PHOSPHOROUS 3.7 mg/dL (2.5-4.9); PROTEIN - SERUM 5.8 g/dL (6.4-8.2)
[2017-07-15 06:11] VITALS: BP 116/59
[2017-07-15 09:04] VITALS: BP 85/39
[2017-07-15 11:35] VITALS: BP 92/43
[2017-07-15 15:36] VITALS: BP 102/41
[2017-07-15 20:00] VITALS: BP 89/91
[2017-07-16 01:00] VITALS: BP 78/42
[2017-07-16 04:44] LABS: BASOPHILS 0.4 % (0-2); EOSINOPHILS 0.5 % (0-7); HEMATOCRIT 33.6 % (42.0-54.0); HEMOGLOBIN 11.4 g/dL (13.5-17.5); IMMATURE GRANULOCYTES 0.4 % (0-5); LYMPHOCYTES 16.2 % (15-50); MCH 36.9 pg (26.0-34.0); MCHC 33.9 g/dL (31.0-37.0); MCV 108.7 fL (80.0-100.0); MEAN PLATELET VOLUME 10.5 fL (7.4-10.4); MONOCYTES 11.3 % (2-11); NEUTROPHILS 71.2 % (40-80); PLATELET COUNT 259 10x3/uL (130-400); RBC 3.09 10x6/uL (4.20-6.10); RDW 13.1 % (11.5-14.5); WBC 11.4 10x3/uL (4.8-10.8)
[2017-07-16 05:00] VITALS: BP 85/42
[2017-07-16 05:13] LABS: BILIRUBIN - TOTAL 0.6 mg/dL (0.2-1.3); CARBON DIOXIDE 24.1 mmol/L (21.0-32.0); CREATININE - SERUM 1.2 mg/dL (0.6-1.3); MAGNESIUM - SERUM 1.6 mg/dL (1.8-2.4); PHOSPHOROUS 3.8 mg/dL (2.5-4.9); PROTEIN - SERUM 5.6 g/dL (6.4-8.2)
[2017-07-16 05:50] LABS: ANION GAP 13.8 mmol/L (8-16); POTASSIUM - SERUM 3.9 mmol/L (3.5-5.1)
[2017-07-16 08:48] VITALS: BP 94/54
[2017-07-16 13:24] VITALS: BP 95/45
[2017-07-16 16:40] VITALS: BP 90/54
[2017-07-16 20:11] VITALS: BP 98/44
[2017-07-17 05:02] LABS: BASOPHILS 0.4 % (0-2); EOSINOPHILS 0.5 % (0-7); HEMATOCRIT 31.9 % (42.0-54.0); HEMOGLOBIN 10.9 g/dL (13.5-17.5); IMMATURE GRANULOCYTES 0.4 % (0-5); LYMPHOCYTES 15.4 % (15-50); MCH 36.9 pg (26.0-34.0); MCHC 34.2 g/dL (31.0-37.0); MCV 108.1 fL (80.0-100.0); MEAN PLATELET VOLUME 10.5 fL (7.4-10.4); MONOCYTES 11.9 % (2-11); NEUTROPHILS 71.4 % (40-80); PLATELET COUNT 261 10x3/uL (130-400); RBC 2.95 10x6/uL (4.20-6.10); RDW 12.7 % (11.5-14.5); WBC 13.8 10x3/uL (4.8-10.8)
[2017-07-17 05:32] VITALS: BP 94/46
[2017-07-17 05:40] LABS: ANION GAP 12.9 mmol/L (8-16); BILIRUBIN - TOTAL 0.7 mg/dL (0.2-1.3); CARBON DIOXIDE 25.2 mmol/L (21.0-32.0); CREATININE - SERUM 1.4 mg/dL (0.6-1.3); MAGNESIUM - SERUM 1.6 mg/dL (1.8-2.4); PHOSPHOROUS 4.2 mg/dL (2.5-4.9); POTASSIUM - SERUM 4.1 mmol/L (3.5-5.1); PROTEIN - SERUM 5.5 g/dL (6.4-8.2)
[2017-07-17 09:13] VITALS: BP 105/46
[2017-07-17] MEDS ORDERED: LEVAQUIN500 MG PO (09:36)
[2017-07-17] MEDS ORDERED: NICODERM C1 PATCH .3 TRANSDERM (09:36)
== END 2017-07-17 16:15 | DRG 432 ==
LOC: D.ER 18:40 → D.EDHOLD 22:31 → D.M2 22:58
PROVIDERS: Emergency Medicine; Family Medicine; Radiology Vascular & Interventional Radiology
PROC: 0W9G3ZZ Drainage of Peritoneal Cavity, Percutaneous Approach (ICD-10-PCS; principal; 2017-07-14 12:31)
DX: K70.31 Alcoholic cirrhosis of liver with ascites (principal); J18.9 Pneumonia, unspecified organism; J44.0 Chronic obstructive pulmonary disease with (acute) lower respiratory infection; F17.203 Nicotine dependence unspecified, with withdrawal; N39.0 Urinary tract infection, site not specified; E44.0 Moderate protein-calorie malnutrition; E87.1 Hypo-osmolality and hyponatremia; E11.65 Type 2 diabetes mellitus with hyperglycemia; I10 Essential (primary) hypertension; F41.9 Anxiety disorder, unspecified; F32.9 Major depressive disorder, single episode, unspecified; Z68.34 Body mass index [BMI] 34.0-34.9, adult; D63.8 Anemia in other chronic diseases classified elsewhere; E83.42 Hypomagnesemia

== ENCOUNTER 2017-07-17 16:30 | Inpatient (IN) | payer MEDICARE ==
[~2017-07-17] VITALS: Ht 170.2 cm; Wt 96.2 kg
--- NOTE | ~2017-07-17 | HEMODYNAMI ---
PATIENT:JUD RIOS MEDICAL RECORD: [id number] : 46 LOCATION:[place] [address] ADMISSION DATE: 07/17/17 Generatedon:07/20/201712:21 Patient name: JUD RIOS Patient #: [id number] SSN: : 1950 Date of study: 07/20/2017 Page: Of Hemodynamic Procedure Report Patient Data Patient Demographics Procedure consent was obtained First Name: JUD Gender: Male Last Name: GABRIEL : 1950 [facility] Initial: TRISTON Age: 67 year(s) Patient #: [id number] Race: Unknown Additional ID: [id number] Contact details Address: [address] [place] [address] State: [place] City: [place] Zip code: [address] Past Medical History Allergies: No known allergies Admission Admission Data Admission Date: 07/17/2017 Admission Time: 16:30 Room #: [facility] Procedure Procedure Types Cath Procedure Peripheral Cath Diagnostic Procedure Miscellaneous PARACENTESIS WITH GUIDE Procedure Description Procedure Date Procedure Date: 07/20/2017 Procedure Start Time: 11:55 Procedure Staff Name Function Maverick Pizarro MD Performing Physician Jesús Galarza RT Monitor Jesús Galarza RT Scrub Tamara He RN Nurse Hemodynamics Rest Heart Rate: 100 (bpm) Snapshots Pre Cath Intra NCS Post Cath Vital Signs Time Heart Resp etCO2 NIBP (mmHg) Rhythm Pain Sedation Rate (ipm) (mmHg) Status Level (bpm) 11:51:34 103 12 0 105/71(86) NSR 0 (11) 10(A) , No pain 11:55:39 42 14 0 116/72(100) NSR 0 (11) 10(A) , No pain 11:59:55 14 13 0 92/55(81) NSR 0 (11) 10(A) , No pain 12:04:34 11 13 0 109/69(94) NSR 0 (11) 10(A) , No pain 12:08:42 19 15 0 122/66(91) NSR 0 (11) 10(A) , No pain 12:12:48 62 26 0 108/62(80) NSR 0 (11) 10(A) , No pain 12:17:00 74 13 0 104/55(72) NSR 0 (11) 10(A) , No pain 12:21:05 106 18 0 106/68(87) NSR 0 (11) 10(A) , No pain Procedure Log Time Note 11:40:54 Jesús Galarza RT (R) (CV) sent for patient. Start room use. 11:41:05 Time tracking: Regular hours (M-F 7:00 - 5:00) 11:41:12 Plan of Care:Hemodynamics will remain stable., Cardiac rhythm will remain stable., Comfort level will be maintained., Respiratory function will remain adequate., Patient/ family verbilizes understanding of procedure., Procedure tolerated without complication., Recovers from procedure without complications.. 11:41:40 Patient arrived from Other to IR. Patient remains on bed/stretcher for procedure. 11:41:42 Correct patient and procedure confirmed by team. 11:41:45 Signed procedure consent form obtained from patient. 11:41:46 Full Disclosure recording started 11:41:47 - 11:41:50 H&P Date Dictated: 07/20/2017 Within 30 days and on chart.. 11:41:50 Pre-procedure instructions explained to patient. 11:41:51 Pre-op teaching completed and patient verbalized understanding. 11:41:54 Family unavailable. 11:41:58 Patient NPO since Midnight. 11:42:07 Patient pain scale 0/10 no pain. 11:44:49 Is the patient allergic to Iodine/contrast media? No. 11:44:50 Is patient on blood thinner?No 11:44:52 Patient diabetic? Yes. 11:44:53 If diabetic: On Metformin? No 11:44:55 - 11:44:55 ----Pre-sedation anethsthesia assessment.---- 11:44:58 Previous problem with sedation/anesthesia? No ? 11:44:59 Snore? Yes 11:45:01 Sleep apnea? No 11:45:02 Deviated septum? No 11:45:08 Opens mouth fully? Yes 11:45:10 Sticks out tongue? Yes 11:45:14 Airway obstruction? Yes copd 11:45:23 Dentures? No ? 11:45:27 Sharps counted by scrub and verified by R.N. 11:45:28 Alarms reviewed by RObi N. 11:45:32 Right abdomen area was prepped with chlora-prep and draped in sterile fashion 11:50:24 ECG and BP/O2 sat monitors applied to patient. 11:50:25 Vital chart was started 11:50:27 Baseline sample Acquired. 11:54:53 Physician arrived 11:54:53 --------ALL STOP TIME OUT------ 11:54:54 Final Timeout: patient, procedure, and site verified with staff and physician. All members of the team are in agreement. 11:54:56 Right abdomen site verified by team. 11:55:08 Sedation plan: Local Anesthetic Medication:Lidocaine 11:55:23 Procedure started. 11:55:28 Local anesthetic to Abdominal area with Lidocaine 1% by Maverick Pizarro MD.INITIAL ACCESS ONLY 11:55:34 [id number] 8FR CATH DRAIN TRAY opened to sterile field. 12:18:08 Dermabond Pen opened to sterile field. 12:20:09 Procedure ended.(Physican Out) 12:20:13 Sharps counted by scrub and verified by R.N. 12:20:23 6.2 liters drained 12:20:26 Insertion/operative site no bleeding no hematoma. 12:20:48 Post Abdominal area:stable 12:21:00 Post-op/insertion site Right Abdominal area dressed using a Dermabond. 12:21:15 Post procedure instruction explained to patient.Patient verbalizes understanding. 12:21:17 Procedure and supply charges have been captured, reviewed, submitted an d are correct. 12:21:19 Report given to Other. 12:21:26 Patient transfered to Other with Bed. 12:21:44 Vital chart was stopped Device Usage Item Name Manufacture Quantity Catalog Hospital Part Current Minimal Lot# / Number Charge Number Stock Stock Serial# Code [id number] CareFusion 1 [id number] 8FR CATH DRAIN TRAY Dermabond Pen Cardinal 1 [id number] Health Signature Audit [place] Stage Time Signature Unsigned Intra-Procedure 07/20/2017 Jesús 12:21:42 PM Geovanni RT (R) (CV) Signatures Monitor : Jesús Signature : Geovanni RT Date : Time : [address] [address]
--- NOTE | ~2017-07-17 | RHP ---
PATIENT: JUD RIOS MEDICAL RECORD: [id number] ACCOUNT: [id number] LOCATION:[id number] : 46 ADMISSION DATE: 07/17/17 REHABILITATION HISTORY AND PHYSICAL EXAMINATION POST ADMISSION PHYSICIAN EXAMINATION DATE OF ADMISSION: 07/17/2017. ADMITTING DIAGNOSIS: Disuse myopathy HISTORY OF PRESENT ILLNESS: The patient admitted to the inpatient rehab with disuse myopathy. He is a 67-year-old gentleman of [employer]. [place] who was newly diagnosed with cirrhosis, was discharged on 07/11/2017, was readmitted on 07/13/2017, had increasing abdominal distention and weakness. He cannot ambulate. He declined the inpatient rehabilitation during his last hospital stay and realizes that he should have come to increase his strength prior to going home. He was started on lactulose, discharged, he reported he has not been taking it. His ammonia level was 17 on admit, but elevated up to 44 during his acute hospital stay. He is now down to 19. He admitted to the acute care hospital with ascites and pneumonia. He is on IV antibiotics, receiving diuretic therapy for edema. He had paracentesis on his last hospitalization with 9.5 liters of fluid out. He was moderately independent with mobility with use of a single point cane or rolling walker, was independent for his ADLs prior to this recent admit. He is currently ambulating 100 feet and states he is unsteady, dizzy headed, shortness of breath, and uses 4 liters of oxygen via nasal cannula. He has proximal muscle weakness with difficulty rising from bed to chair. He is currently set up mod assist for his ADLs. He lives at home with his sister and his sister planned for him to return home and get back to his prior level of functioning or better. COMORBIDITIES: In this patient include alcoholic cirrhosis, pneumonia, type 2 diabetes, COPD, chronic hypertension, nicotine dependence and withdrawal, ascites, hepatic dysfunction, and cirrhosis. PAST MEDICAL HISTORY: Significant for weakness, left ear hearing loss, diabetes, hypertension, coronary artery disease, COPD, O2 dependence, cirrhosis, ascites, depression and anxiety. PAST SURGICAL HISTORY: Includes a laparoscopic cholecystectomy. He has had bilateral lower extremity surgeries. ALLERGIES: No known drug allergies. CURRENT MEDICATIONS: Include Flomax 0.4 mg daily. He is on a Nicoderm patch 21 mg daily, Levaquin 500 mg daily, furosemide 20 mg b.i.d., polyethylene glycol 17 grams in 8 ounces of water daily, lactulose 15 cc b.i.d., Crumpler 10/325 one tab q.4 hours p.r.n., and Ventolin updrafts as needed. HABITS: He does have a history of tobacco use and alcohol use. FAMILY HISTORY: Noncontributory. SOCIAL HISTORY: The patient hopes to return back to home and get back to his prior level of function and live with his sister. HISTORY AND PHYSICAL [id number] JUD RIOS REVIEW OF SYSTEMS: GENERAL: Does complain of weakness and fatigue. HEENT: Denies cold, cough, or congestion. CARDIOVASCULAR: Denies chest pain. PHYSICAL EXAMINATION: VITAL SIGNS: Stable, afebrile. GENERAL: Elderly gentleman in no acute distress, alert upon exam. HEENT: Normocephalic and atraumatic. Mucosa moist. NECK: Supple. No lymphadenopathy. LUNGS: Clear at this time. HEART: Regular rate and rhythm. ABDOMEN: Benign, although it is somewhat protuberant. EXTREMITIES: No clubbing, cyanosis, or edema. NEUROLOGIC: He is a little bit slow to mentate. He does have noted diffuse weakness. LABORATORY DATA: His white count is 14.7, H&H of 11 and 33, platelet count is noted to be 309. His MCV is 108.1. Sodium 133, potassium 4.3, BUN and creatinine of 21 and 1.3 and blood sugar is noted to be 121. ASSESSMENT: This is a 67-year-old gentleman admitted to the rehab with working diagnosis of disuse myopathy complicated by newly diagnosed cirrhosis. The patient has potential to make improvement. We instituted the following multidisciplinary therapies including but not limited to physical, occupational, respiratory, speech, nutritional services, prosthetics and orthotics. Given his complex medical condition and risks for more complications, rehabilitation services cannot be provided at a low level of care such as nursing home facility. PLAN: 1. Admit to [facility] for intensive inpatient therapy to include the following disciplines: A. Physical therapy to improve gait, all transfer skills and bed mobility to a modified independent level. B. Occupational therapy to improve activities of daily living to a modified independent level. C. Case management to assist with discharge planning and placement options. D. Nutrition to assist with nutritional needs. E. Rehabilitation nursing to assist in monitoring the patient's underlying medical condition and to assist with any type of bowel or bladder management. 2. The patient's current medication and medical care will be continued. 3. The patient is going to be placed on standard fall precautions. 4. The patient's estimated length of stay is approximately 7-10 days. 5. I am going to go ahead and check a B12 and folate on him. We will go ahead and follow these up and treat as needed and I am going to follow up with the care team at lunch. TRANSINT:[id number] Voice Confirmation ID: [id number] DOCUMENT ID: [id number] JEANNINE notes whether there has been none or any medical/functional change since admission: - No change since preadmission screen. HISTORY AND PHYSICAL [id number] JUD RIOS attests patient continues to be appropriate for IRF: - Continues to be appropriate. ANNIE STRAUSS MD at 1411 CC: [id number] DICTATION DATE: 07/18/17908 MANAGER PRIMARY CARE: 07/18/17 1131 DIS IN 07/21/17 [facility] [address] [place] [address]
[~2017-07-17 16:30] MED LIST changes: +LEVAQUIN500 MG PO; +NICODERM C1 PATCH .3 TRANSDERM
[2017-07-17 19:48] VITALS: BP 104/46
[2017-07-17 20:07] VITALS: BP 104/46; BMI 33.3
[2017-07-18 06:47] LABS: BASOPHILS 0.3 % (0-2); EOSINOPHILS 0.9 % (0-7); HEMATOCRIT 33.5 % (42.0-54.0); HEMOGLOBIN 11.4 g/dL (13.5-17.5); IMMATURE GRANULOCYTES 0.4 % (0-5); LYMPHOCYTES 13.1 % (15-50); MCH 36.8 pg (26.0-34.0); MCV 108.1 fL (80.0-100.0); MONOCYTES 10.2 % (2-11); NEUTROPHILS 75.1 % (40-80); PLATELET COUNT 309 10x3/uL (130-400); RDW 12.9 % (11.5-14.5); WBC 14.7 10x3/uL (4.8-10.8)
[2017-07-18 07:41] LABS: ANION GAP 15.4 mmol/L (8-16); CALCIUM 8.1 mg/dL (8.5-10.1); CARBON DIOXIDE 23.9 mmol/L (21.0-32.0); CREATININE - SERUM 1.3 mg/dL (0.6-1.3); POTASSIUM - SERUM 4.3 mmol/L (3.5-5.1)
[2017-07-18 08:00] VITALS: BP 96/44
[2017-07-18 13:53] VITALS: Ht 170.2 cm; Wt 96.2 kg
[2017-07-18 20:06] VITALS: BP 95/41
[2017-07-19 08:00] VITALS: BP 107/53
[2017-07-19 20:05] VITALS: BP 106/44
[2017-07-20 05:00] LABS: BASOPHILS 0.2 % (0-2); EOSINOPHILS 0.7 % (0-7); HEMOGLOBIN 10.3 g/dL (13.5-17.5); IMMATURE GRANULOCYTES 0.3 % (0-5); MCH 36.7 pg (26.0-34.0); MCHC 34.3 g/dL (31.0-37.0); MCV 106.8 fL (80.0-100.0); MEAN PLATELET VOLUME 10.3 fL (7.4-10.4); MONOCYTES 11.1 % (2-11); NEUTROPHILS 73.7 % (40-80); PLATELET COUNT 301 10x3/uL (130-400); RBC 2.81 10x6/uL (4.20-6.10); RDW 12.5 % (11.5-14.5); WBC 12.2 10x3/uL (4.8-10.8)
[2017-07-20 05:12] LABS: ANION GAP 13.6 mmol/L (8-16); CALCIUM 8.2 mg/dL (8.5-10.1); CARBON DIOXIDE 23.3 mmol/L (21.0-32.0); CREATININE - SERUM 1.3 mg/dL (0.6-1.3); POTASSIUM - SERUM 3.9 mmol/L (3.5-5.1)
[2017-07-20 06:06] VITALS: BP 81/40
[2017-07-20 08:00] VITALS: BP 89/46
[2017-07-20 11:36] LABS: INR 1.08 (0.85-1.17); PROTIME 13.6 SECONDS (11.6-15.0)
[2017-07-20 19:00] VITALS: BP 67/32
[2017-07-21 06:20] LABS: BASOPHILS 0.3 % (0-2); EOSINOPHILS 0.8 % (0-7); HEMOGLOBIN 11.2 g/dL (13.5-17.5); IMMATURE GRANULOCYTES 0.5 % (0-5); LYMPHOCYTES 18.2 % (15-50); MCH 36.8 pg (26.0-34.0); MCHC 33.9 g/dL (31.0-37.0); MCV 108.6 fL (80.0-100.0); MEAN PLATELET VOLUME 10.5 fL (7.4-10.4); NEUTROPHILS 68.2 % (40-80); PLATELET COUNT 346 10x3/uL (130-400); RBC 3.04 10x6/uL (4.20-6.10); RDW 12.8 % (11.5-14.5)
[2017-07-21 06:52] LABS: ALBUMIN 1.8 g/dL (3.4-5.0); ANION GAP 14.7 mmol/L (8-16); BILIRUBIN - TOTAL 0.47 mg/dL (0.2-1.3); CALCIUM 8.4 mg/dL (8.5-10.1); CARBON DIOXIDE 24.5 mmol/L (21.0-32.0); CREATININE - SERUM 1.5 mg/dL (0.6-1.3); POTASSIUM - SERUM 4.2 mmol/L (3.5-5.1); PROTEIN - SERUM 6.1 g/dL (6.4-8.2)
[2017-07-21 08:17] LABS: FOLATE (FOLIC ACID) - SERUM 2.6 ng/mL (>3.0)
[2017-07-21 09:27] VITALS: BP 97/43
[2017-07-21] MEDS ORDERED: ALDACTONE50 MG PO (10:10)
== END 2017-07-21 11:00 | disposition left against medical advice (07) | DRG 91 ==
LOC: D.REHAB 16:30
PROVIDERS: Emergency Medicine; Specialist
PROC: 0W9G3ZZ Drainage of Peritoneal Cavity, Percutaneous Approach (ICD-10-PCS; principal; 2017-07-20 11:30)
DX: G72.89 Other specified myopathies (principal); J18.9 Pneumonia, unspecified organism; F17.203 Nicotine dependence unspecified, with withdrawal; N20.1 Calculus of ureter; E87.1 Hypo-osmolality and hyponatremia; E44.0 Moderate protein-calorie malnutrition; K70.31 Alcoholic cirrhosis of liver with ascites; J44.9 Chronic obstructive pulmonary disease, unspecified; I10 Essential (primary) hypertension; K76.89 Other specified diseases of liver; Z68.32 Body mass index [BMI] 32.0-32.9, adult; E83.42 Hypomagnesemia; K70.40 Alcoholic hepatic failure without coma; E11.65 Type 2 diabetes mellitus with hyperglycemia

== ENCOUNTER 2017-07-31 10:07 | Outpatient (CLI) | payer MEDICARE ==
[2017-07-18 13:53] VITALS: BMI 33.2
--- NOTE | ~2017-07-31 | HEMODYNAMI ---
PATIENT:JUD RIOS MEDICAL RECORD: [id number] : 46 LOCATION:[place] ADMISSION DATE: 07/31/17 Generatedon:07/31/201714:27 Patient name: JUD RIOS Patient #: [id number] SSN: : 1950 Date of study: 07/31/2017 Page: Of Hemodynamic Procedure Report Patient Data Patient Demographics Procedure consent was obtained First Name: JUD Gender: Male Last Name: GABRIEL : 1950 [facility] Initial: TRISTON Age: 67 year(s) Patient #: [id number] Race: Unknown Additional ID: [id number] Contact details Address: [address] [place] [address] State: [place] City: [place] Zip code: [address] Past Medical History Allergies: No known allergies Admission Admission Data Admission Date: 07/31/2017 Admission Time: 10:07 Weight (lbs.): 215 Weight (kg.): 97.52 Procedure Procedure Types Cath Procedure Peripheral Cath Diagnostic Procedure Cath Peripheral Miscellaneous PARACENTESIS WITH GUIDE Procedure Description Procedure Date Procedure Date: 07/31/2017 Procedure Start Time: 13:46 Procedure Staff Name Function Samir Liz MD Performing Physician Tamara He RN Nurse Keri Hodgson RT Gate Supervisor Hemodynamics Rest Heart Rate: 50 (bpm) Snapshots Pre Cath Intra NCS Post Cath Vital Signs Time Heart Resp SPO2 etCO2 NIBP (mmHg) Rhythm Pain Sedation Rate (ipm) (%) (mmHg) Status Level (bpm) 13:46:32 103 0 134/79(108) NSR 0 (11) 10(A) , No pain 13:50:45 103 22 0 109/78(98) NSR 0 (11) 10(A) , No pain 13:54:57 100 26 0 124/69(91) NSR 0 (11) 10(A) , No pain 13:59:12 102 18 0 124/79(101) NSR 0 (11) 10(A) , No pain 14:03:23 100 20 95 0 114/76(93) NSR 0 (11) 10(A) , No pain 14:07:37 101 16 0 115/70(87) NSR 0 (11) 10(A) , No pain 14:11:52 98 20 0 102/69(92) NSR 0 (11) 10(A) , No pain 14:15:59 102 10 92 0 107/69(79) NSR 0 (11) 10(A) , No pain 14:20:11 97 17 0 111/66(85) NSR 0 (11) 10(A) , No pain 14:24:21 98 10 0 108/70(81) NSR 0 (11) 10(A) , No pain Procedure Log Time Note 13:35:20 Patient Weight : 215 lbs 13:35:22 [id number] 8FR CATH DRAIN TRAY opened to sterile field. 13:35:26 Time tracking: Regular hours (M-F 7:00 - 5:00) 13:35:41 Plan of Care:Hemodynamics will remain stable., Cardiac rhythm will remain stable., Comfort level will be maintained., Respiratory function will remain adequate., Patient/ family verbilizes understanding of procedure., Procedure tolerated without complication., Recovers from procedure without complications.. 13:35:48 Patient received from Outpatients to IR Alert and oriented. Tansferred to table in Supine position. 13:35:51 Signed procedure consent form obtained from patient. 13:35:59 H&P Date Dictated: 07/31/2017 ER History on chart.. 13:36:01 Pre-procedure instructions explained to patient. 13:36:02 Pre-op teaching completed and patient verbalized understanding. 13:36:04 Family unavailable. 13:36:19 Patient NPO since Midnight. 13:36:34 Patient allergic to No known allergies 13:36:40 Is patient on blood thinner?No 13:36:43 Patient diabetic? Yes. 13:36:46 If diabetic: On Metformin? No 13:36:49 - 13:36:51 ----Pre-sedation anethsthesia assessment.---- 13:36:54 Previous problem with sedation/anesthesia? No ? 13:36:57 Snore? Yes 13:36:59 Sleep apnea? No 13:37:01 Deviated septum? No 13:37:03 Opens mouth fully? Yes 13:37:05 Sticks out tongue? Yes 13:37:11 Airway obstruction? Yes copd 13:37:17 Dentures? No ? 13:37:19 - 13:37:29 IV patent on arrival in left antecubital with D5/.45%NaCl at KVO. 13:37:36 Right abdomen area was prepped with chlora-prep and draped in sterile fashion 13:37:39 - 13:45:23 ECG and BP/O2 sat monitors applied to patient. 13:45:24 Vital chart was started 13:45:26 Baseline sample Acquired. 13:45:28 Full Disclosure recording started 13:45:32 - 13:45:39 Physician arrived 13:46:01 --------ALL STOP TIME OUT------ 13:46:02 Final Timeout: patient, procedure, and site verified with staff and physician. All members of the team are in agreement. 13:46:16 Procedure started. 13:46:22 Local anesthetic to Abdominal area with Lidocaine 1% by Samir Liz MD.INITIAL ACCESS ONLY 13:56:30 CONNECTING TUBE FOR DRAINAGE BAG ([id number]) opened to sterile field. 14:20:28 11.2 liters drained from abdomen 14:22:42 Procedure ended.(Physican Out) 14:27:00 Vital chart was stopped Device Usage Item Name Manufacture Quantity Catalog Hospital Part Current Mini mather hospital Lot# / Number Charge Number Stock Stock Serial# Code [id number] CareFusion 1 [id number] 5 8FR CATH DRAIN TRAY CONNECTING TUBE [place] 1 [id number] FOR DRAINAGE Scientific BAG ([id number]) Signature Audit [place] Stage Time Signature Unsigned Intra-Procedure 07/31/2017 Keri Hodgson 2:26:58 PM RT(R) [place] [address] [place] [address]
[~2017-07-31 10:07] MED LIST changes: +ALDACTONE50 MG PO
[2017-07-31 10:49] LABS: BASOPHILS 0.2 % (0-2); EOSINOPHILS 0.4 % (0-7); HEMATOCRIT 37.8 % (42.0-54.0); HEMOGLOBIN 13.1 g/dL (13.5-17.5); IMMATURE GRANULOCYTES 0.6 % (0-5); LYMPHOCYTES 18.8 % (15-50); MCH 36.7 pg (26.0-34.0); MCHC 34.7 g/dL (31.0-37.0); MCV 105.9 fL (80.0-100.0); MEAN PLATELET VOLUME 11.5 fL (7.4-10.4); MONOCYTES 12.1 % (2-11); NEUTROPHILS 67.9 % (40-80); RBC 3.57 10x6/uL (4.20-6.10); RDW 13.1 % (11.5-14.5); WBC 16.3 10x3/uL (4.8-10.8)
[2017-07-31 10:57] LABS: PLATELET COUNT 430 10x3/uL (130-400)
[2017-07-31 11:40] LABS: APTT 39.7 SECONDS (22.8-39.4); INR 1.05 (0.85-1.17); PROTIME 13.3 SECONDS (11.6-15.0)
[2017-07-31 12:06] LABS: ALBUMIN 1.9 g/dL (3.4-5.0); ANION GAP 14.2 mmol/L (8-16); BILIRUBIN - TOTAL 0.74 mg/dL (0.2-1.3); CALCIUM 9.1 mg/dL (8.5-10.1); CARBON DIOXIDE 24.5 mmol/L (21.0-32.0); CREATININE - SERUM 1.6 mg/dL (0.6-1.3)
[2017-07-31 12:07] LABS: POTASSIUM - SERUM 5.7 mmol/L (3.5-5.1)
== END 2017-07-31 16:10 | disposition home or self-care (01) ==
LOC: D.ER 10:07 → D.OPS 10:07 → EDSTATUS 12:52 → D.OPS 16:10
PROVIDERS: Family Medicine
DX: K74.60 Unspecified cirrhosis of liver (principal); R18.8 Other ascites; Z01.812 Encounter for preprocedural laboratory examination

== ENCOUNTER 2017-08-06 10:39 | Outpatient (CLI) | payer MEDICARE ==
[~2017-08-06] VITALS: Ht 170.2 cm; Wt 97.7 kg
[2017-08-06] MEDS ORDERED: ENULOSE10 G/15 ML PO (12:05)
[2017-08-06] MEDS ORDERED: HYDROCODONE-APA1 TAB PO (12:09)
[2017-08-06 12:15] VITALS: Ht 170.2 cm; Wt 97.7 kg
[2017-08-06 12:41] LABS: BASOPHILS 0.3 % (0-2); EOSINOPHILS 0.9 % (0-7); HEMATOCRIT 37.3 % (42.0-54.0); IMMATURE GRANULOCYTES 0.5 % (0-5); LYMPHOCYTES 14.7 % (15-50); MCH 35.8 pg (26.0-34.0); MCHC 34.9 g/dL (31.0-37.0); MCV 102.8 fL (80.0-100.0); MEAN PLATELET VOLUME 12.1 fL (7.4-10.4); MONOCYTES 12.3 % (2-11); NEUTROPHILS 71.3 % (40-80); PLATELET COUNT 299 10x3/uL (130-400); RBC 3.63 10x6/uL (4.20-6.10); RDW 13.1 % (11.5-14.5); WBC 15.5 10x3/uL (4.8-10.8)
[2017-08-06 12:55] LABS: APTT 28.7 SECONDS (22.8-39.4); INR 1.1 (0.85-1.17); PROTIME 13.8 SECONDS (11.6-15.0)
[2017-08-06 13:03] LABS: CALCIUM 8.7 mg/dL (8.5-10.1); CARBON DIOXIDE 21.9 mmol/L (21.0-32.0); CREATININE - SERUM 1.4 mg/dL (0.6-1.3)
[2017-08-06 13:07] LABS: ANION GAP 12.2 mmol/L (8-16); POTASSIUM - SERUM 5.1 mmol/L (3.5-5.1)
== END 2017-08-06 17:50 | disposition home or self-care (01) ==
LOC: D.ER 10:39 → D.OPS 10:39 → D.ER 10:39 → EDSTATUS 11:13 → D.OPS 17:50
PROVIDERS: Specialist
DX: R18.8 Other ascites (principal); Z01.812 Encounter for preprocedural laboratory examination

== ENCOUNTER 2017-08-13 06:56 | Outpatient (CLI) | payer MEDICARE ==
[~2017-08-13] VITALS: Ht 170.2 cm; Wt 90.9 kg
--- NOTE | ~2017-08-13 | HEMODYNAMI ---
PATIENT:JUD RIOS MEDICAL RECORD: [id number] : 46 LOCATION:[place] ADMISSION DATE: 08/13/17 Generatedon:08/13/20179:46 Patient name: JUD RIOS Patient #: [id number] SSN: : 1950 Date of study: 08/13/2017 Page: Of Hemodynamic Procedure Report Patient Data Patient Demographics Procedure consent was obtained First Name: JUD Gender: Male Last Name: GABRIEL : 1950 [facility] Initial: TRISTON Age: 67 year(s) Patient #: [id number] Race: Unknown Additional ID: [id number] Contact details Address: [address] [place] [address] State: [place] City: [place] Zip code: [address] Past Medical History Allergies: No known allergies Admission Admission Data Admission Date: 08/13/2017 Admission Time: 6:56 Procedure Procedure Types Cath Procedure Peripheral Cath Diagnostic Procedure Miscellaneous PARACENTESIS WITH GUIDE Procedure Description Procedure Date Procedure Date: 08/13/2017 Procedure Start Time: 9:12 Procedure Staff Name Function Samir Liz MD Performing Physician Jesús Galarza RT Monitor Tamara He RN Nurse Procedure Medications Medication Administration Route Dosage Lidocaine 1% added to field 20 Hemodynamics Rest Heart Rate: 85 (bpm) Snapshots Pre Cath Intra NCS Post Cath Vital Signs Time Heart Resp SPO2 etCO2 NIBP (mmHg) Rhythm Pain Sedation Rate (ipm) (%) (mmHg) Status Level (bpm) 9:12:41 101 17 100 0 118/70(103) NSR 0 (11) 10(A) , No pain 9:16:55 101 17 100 0 84/63(78) NSR 0 (11) 10(A) , No pain 9:18:11 100 10 100 0 100/57(74) NSR 0 (11) 10(A) , No pain 9:22:15 103 8 100 0 105/68(83) NSR 0 (11) 10(A) , No pain 9:26:23 102 12 100 0 114/63(97) NSR 0 (11) 10(A) , No pain 9:30:31 99 9 100 0 104/65(86) NSR 0 (11) 10(A) , No pain 9:34:38 114 13 0 99/59(81) NSR 0 (11) 10(A) , No pain 9:38:42 200 17 100 0 94/69(85) NSR 0 (11) 10(A) , No pain 9:42:56 196 17 99 0 95/57(77) NSR 0 (11) 10(A) , No pain Medications Time Medication Route Dose Verified Delivered Reason Notes Effectivene ss by by 9:14:54 Lidocaine added 20ml Samir Dawson used for 1% to vial Shalonda Liz procedure field MD PALACIOS Procedure Log Time Note 8:55:19 Time tracking: Regular hours (M-F 7:00 - 5:00) 8:55:24 Plan of Care:Hemodynamics will remain stable., Cardiac rhythm will remain stable., Comfort level will be maintained., Respiratory function will remain adequate., Patient/ family verbilizes understanding of procedure., Procedure tolerated without complication., Recovers from procedure without complications.. 8:55:28 Patient arrived from Outpatients to IR. Patient remains on bed/stretcher for procedure. 8:55:31 Signed procedure consent form obtained from patient. 8:55:32 ECG and BP/O2 sat monitors applied to patient. 8:55:36 8:55:37 Full Disclosure recording started 8:55:44 H&P Date Dictated: 08/13/2017 H&P Addendum completed by physician on day of procedure. (MUST COMPLETE FOR ALL OUTPATIENTS). 8:55:45 Pre-procedure instructions explained to patient. 8:55:45 Pre-op teaching completed and patient verbalized understanding. 8:55:47 Family in waiting room. 8:55:48 Patient NPO since Midnight. 8:55:53 Is the patient allergic to Iodine/contrast media? No. 8:55:56 Is patient on blood thinner?No 8:56:34 Patient diabetic? No. 8:56:44 ----Pre-sedation anethsthesia assessment.---- 8:57:07 Previous problem with sedation/anesthesia? No ? 8:57:09 Snore? Yes 8:57:11 Sleep apnea? No 8:57:12 Deviated septum? No 8:57:13 Opens mouth fully? Yes 8:57:14 Sticks out tongue? Yes 8:57:17 Airway obstruction? No ? 8:57:21 Dentures? No ? 9:07:58 Patient pain scale 0/10 NO PAIN. 9:08:03 IV patent on arrival in right forearm with 0.9% NaCl at [facility]. 9:08:08 Sharps counted by scrub and verified by R.N. 9:08:09 Alarms reviewed by R. N. 9:09:15 Right abdomen area was prepped with chlora-prep and draped in sterile fashion 9:11:39 ECG and BP/O2 sat monitors applied to patient. 9:11:40 Baseline sample Acquired. 9:11:40 Vital chart was started 9:11:44 Physician arrived 9:11:44 --------ALL STOP TIME OUT------ 9:11:45 Final Timeout: patient, procedure, and site verified with staff and physician. All members of the team are in agreement. 9:11:48 Right abdomen site verified by team. 9:12:05 Sedation plan: Local Anesthetic Medication:Lidocaine 9:12:23 Procedure started. 9:12:28 Local anesthetic to Abdominal area with Lidocaine 1% by Samir Liz MD.INITIAL ACCESS ONLY 9:12:39 [id number] 8FR CATH DRAIN TRAY opened to sterile field. 9:12:39 CONNECTING TUBE FOR DRAINAGE BAG ([id number]) opened to sterile field. 9:14:54 Lidocaine 1% 20ml vial added to field was administered by Samir Liz MD; used for procedure; 9:42:44 3.8 LITERS 9:42:49 Procedure ended.(Physican Out) 9:42:57 Sharps counted by scrub and verified by R.N. 9:42:59 Insertion/operative site no bleeding no hematoma. 9:43:02 Post-op/insertion site Right Abdominal area dressed using a 4 x 4 and Tegaderm. 9:43:08 Post Abdominal area:stable 9:43:13 Post procedure instruction explained to patient.Patient verbalizes understanding. 9:43:55 Report given to Outpatients. 9:44:02 Patient transfered to Outpatients with Stretcher. 9:46:52 Vital chart was stopped Device Usage Item Name Manufacture Quantity Catalog Hospital Part Current Mini mal Lot# / Number Charge Number Stock Stock Serial# Code [id number] CareFusion 1 [id number] 5 8FR CATH DRAIN TRAY CONNECTING TUBE [place] 1 [id number] FOR DRAINAGE Scientific BAG ([id number]) Signature Audit [place] Stage Time Signature Unsigned Intra-Procedure 08/13/2017 Jesús 9:46:49 AM Geovanni RT (R) (CV) Signatures Monitor : Jesús Signature : Geovanni RT Date : Time : [place] [id number] [place] [address]
[~2017-08-13 06:56] MED LIST changes: +ENULOSE10 G/15 ML PO
[2017-08-13 07:33] VITALS: BP 109/43; Ht 170.2 cm; Wt 90.9 kg
[2017-08-13 07:43] LABS: CALCIUM 8.9 mg/dL (8.5-10.1); CARBON DIOXIDE 21.1 mmol/L (21.0-32.0); CREATININE - SERUM 1.6 mg/dL (0.6-1.3)
[2017-08-13 07:49] LABS: ANION GAP 15.4 mmol/L (8-16); POTASSIUM - SERUM 4.5 mmol/L (3.5-5.1)
[2017-08-13 08:07] LABS: BASOPHILS 0.4 % (0-2); EOSINOPHILS 0.4 % (0-7); HEMATOCRIT 41.6 % (42.0-54.0); HEMOGLOBIN 14.8 g/dL (13.5-17.5); IMMATURE GRANULOCYTES 0.5 % (0-5); LYMPHOCYTES 17.4 % (15-50); MCH 35.7 pg (26.0-34.0); MCHC 35.6 g/dL (31.0-37.0); MCV 100.2 fL (80.0-100.0); MEAN PLATELET VOLUME 11.3 fL (7.4-10.4); MONOCYTES 8.5 % (2-11); NEUTROPHILS 72.8 % (40-80); RBC 4.15 10x6/uL (4.20-6.10); RDW 13.3 % (11.5-14.5)
[2017-08-13 08:09] LABS: PLATELET COUNT 395 10x3/uL (130-400)
[2017-08-13 08:11] LABS: INR 1.13 (0.85-1.17); PROTIME 14.1 SECONDS (11.6-15.0)
== END 2017-08-13 11:00 | disposition home or self-care (01) ==
LOC: D.SP 06:56 → D.CT 09:00 → D.SP 09:00
PROVIDERS: Radiology Diagnostic Radiology
DX: K74.60 Unspecified cirrhosis of liver (principal); R18.8 Other ascites

== ENCOUNTER 2017-08-22 05:41 | Outpatient (CLI) | payer MEDICARE ==
[~2017-08-22] VITALS: Ht 170.2 cm; Wt 90.9 kg
[2017-08-22 06:22] VITALS: BP 82/44; Ht 170.2 cm; Wt 90.9 kg
[2017-08-22 07:24] LABS: BASOPHILS 0.2 % (0-2); EOSINOPHILS 0.3 % (0-7); HEMATOCRIT 36.1 % (42.0-54.0); HEMOGLOBIN 12.4 g/dL (13.5-17.5); IMMATURE GRANULOCYTES 0.3 % (0-5); LYMPHOCYTES 15.6 % (15-50); MCH 33.2 pg (26.0-34.0); MCHC 34.3 g/dL (31.0-37.0); MCV 96.8 fL (80.0-100.0); MEAN PLATELET VOLUME 10.2 fL (7.4-10.4); MONOCYTES 9.7 % (2-11); NEUTROPHILS 73.9 % (40-80); PLATELET COUNT 304 10x3/uL (130-400); RBC 3.73 10x6/uL (4.20-6.10); RDW 13.8 % (11.5-14.5); WBC 14.6 10x3/uL (4.8-10.8)
[2017-08-22 07:44] LABS: ANION GAP 15.5 mmol/L (8-16); CALCIUM 8.6 mg/dL (8.5-10.1); CARBON DIOXIDE 19.6 mmol/L (21.0-32.0); CREATININE - SERUM 1.7 mg/dL (0.6-1.3); POTASSIUM - SERUM 5.1 mmol/L (3.5-5.1)
[2017-08-22 08:02] LABS: INR 1.14 (0.85-1.17); PROTIME 14.2 SECONDS (11.6-15.0)
== END 2017-08-22 10:45 | disposition home or self-care (01) ==
LOC: D.SP 05:41 → D.CT 08:00 → D.SP 10:45
PROVIDERS: Radiology Diagnostic Radiology
DX: K74.60 Unspecified cirrhosis of liver (principal); Z01.812 Encounter for preprocedural laboratory examination

== ENCOUNTER 2017-08-28 09:39 | Inpatient (IN) | payer MEDICARE ==
[~2017-08-28] VITALS: Ht 170.2 cm; Wt 89.0 kg
[2017-08-28] VITALS (15 sets, daily range): BP systolic 98–156; BP diastolic 44–95; BMI 31.4; BMI 29.0
--- NOTE | ~2017-08-28 | HEMODYNAMI ---
PATIENT:JUD RIOS MEDICAL RECORD: [id number] : 46 LOCATION:[facility]# [id number] ADMISSION DATE: 08/28/17 Generatedon:08/28/201714:44 Patient name: JUD RIOS Patient #: [id number] SSN: : 1950 Date of study: 08/28/2017 Page: Of Hemodynamic Procedure Report Patient Data Patient Demographics Procedure consent was obtained First Name: JUD Gender: Male Last Name: GABRIEL : 1950 Middle Initial: TRISTON Age: 67 year(s) Patient #: [id number] Race: Unknown Additional ID: [id number] Contact details [address]: [address] [place] [address] State: [place] City: [place] Zip code: [address] Past Medical History Allergies: No known allergies Admission Admission Data Admission Date: 08/28/2017 Admission Time: 9:39 Room #: [facility] Procedure Procedure Types Cath Procedure Peripheral Cath Diagnostic Procedure Cath Peripheral Liver TIPSS Procedure Description Procedure Date Procedure Date: 08/28/2017 Procedure Start Time: 12:49 Procedure Staff Name Function Samir Liz MD Performing Physician Keri Hodgson RT Yarn Rewinder Keri Hodgson RT Monitor Ehsan Garcia Additional personnel Eda Ritter RN Nurse Tamara He RN Nurse Jesús Galarza RT Scrub Procedure Data Cath Procedure Fluoroscopy Diagnostic fluoroscopy Total fluoroscopy Time: time: 37.2 min 37.2 min Diagnostic fluoroscopy Total fluoroscopy dose: dose: 2170 mGy 2170 mGy Contrast Material Contrast Material Type Amount (ml) Isovue 300 45 Diagnostic catheters Device Type Used For End Catheter Placement DIAGNOSTIC MPA-2 5Fr catheter ([id number]) Merit UHF Pigtail VESSEL SIZING 5Fr 65CM catheter ([id number]) Merit Impress COBRA 2 5Fr 65CM catheter ([id number]) Procedure Medications Medication Administration Route Dosage Heparin Flush Bag added to field 3 bags (1000units/500ml NS) Lidocaine 1% added to field 20 Hemodynamics Rest Heart Rate: 98 (bpm) Pressure Samples Time Site Value (mmHg) Purpose Heart Use Rate(bpm) 12:54 RA 6/6(5) Snapshot 99 13:06 Hepatic 7/6(6) Snapshot 102 13:10 HEPATIC 14/14(12) Snapshot 102 WEDGE 14:04 Portal 26/-1(22) Snapshot 109 14:30 Portal (17) Snapshot 108 14:33 RA 12/12(10) Snapshot 107 Snapshots Pre Cath Intra NCS Post Cath Vital Signs Time Heart Resp SPO2 etCO2 NIBP (mmHg) Rhythm Pain Sedation Rate (ipm) (%) (mmHg) Status Level (bpm) 12:46:38 6 46 99 0 102/52(61) NSR 0 (11) 10(A) , No pain 12:50:54 38 49 99 0 102/61(74) NSR 0 (11) 10(A) , No pain 12:55:04 99 20 99 0 99/57(83) NSR 0 (11) 10(A) , No pain 12:59:12 55 20 99 0 104/59(74) NSR 0 (11) 10(A) , No pain 13:03:28 24 75 99 0 98/54(72) NSR 0 (11) 10(A) , No pain 13:07:36 47 48 99 0 99/53(74) NSR 0 (11) 10(A) , No pain 13:11:44 28 79 99 0 98/56(72) NSR 0 (11) 10(A) , No pain 13:15:49 31 35 99 0 96/57(74) NSR 0 (11) 10(A) , No pain 13:19:55 36 19 99 0 113/61(77) NSR 0 (11) 10(A) , No pain 13:24:01 47 27 99 0 106/63(76) NSR 0 (11) 10(A) , No pain 13:28:50 91 28 99 0 135/73(93) NSR 0 (11) 10(A) , No pain 13:33:04 108 18 99 0 129/65(90) NSR 0 (11) 10(A) , No pain 13:37:18 59 19 99 0 115/63(78) NSR 0 (11) 10(A) , No pain 13:41:28 28 17 98 0 109/55(73) NSR 0 (11) 10(A) , No pain 13:45:37 58 17 99 0 107/61(77) NSR 0 (11) 10(A) , No pain 13:49:47 48 18 99 0 111/59(72) NSR 0 (11) 10(A) , No pain 13:53:55 44 20 99 0 124/67(86) NSR 0 (11) 10(A) , No pain 13:58:09 87 19 99 0 115/60(80) NSR 0 (11) 10(A) , No pain 14:02:17 102 21 0 118/75(88) NSR 0 (11) 10(A) , No pain 14:06:27 102 20 99 0 130/69(92) NSR 0 (11) 10(A) , No pain 14:10:39 105 20 99 0 120/68(87) NSR 0 (11) 10(A) , No pain 14:15:32 107 27 99 0 149/77(106) NSR 0 (11) 10(A) , No pain 14:19:50 102 24 99 0 133/64(94) NSR 0 (11) 10(A) , No pain 14:24:06 77 22 99 0 136/70(96) NSR 0 (11) 10(A) , No pain 14:28:16 101 26 99 0 113/75(88) NSR 0 (11) 10(A) , No pain 14:33:08 86 10 99 0 131/70(99) NSR 0 (11) 10(A) , No pain 14:37:27 71 16 99 0 118/57(85) NSR 0 (11) 10(A) , No pain 14:41:43 121 12 100 0 118/65(106) NSR 0 (11) 10(A) , No pain Medications Time Medication Route Dose Verified Delivered Reason Notes Effec tiveness by by 12:09:03 Heparin Flush added 3 Samir Dawson used for Bag to bags Shalonda Liz procedure (1000units/500ml field MD PALACIOS NS) 12:09:16 Lidocaine 1% added 20ml Samir Dawson used for to vial Shalonda Liz procedure field MD PALACIOS Procedure Log Time Note 11:53:58 Use device set IR Diagnostic 12:09:03 Heparin Flush Bag (1000units/500ml NS) 3 bags added to field was administered by Samir Liz MD; used for procedure; 12:09:16 Lidocaine 1% 20ml vial added to field was administered by Samir stoddard MD; used for procedure; 12:10:43 A DIAGNOSTIC MPA-2 5Fr catheter ([id number]) was advanced over the wire an d used for . 12:10:47 A [facility] Pigtail VESSEL SIZING 5Fr 65CM catheter ([id number]) was advanced over the wire and used for . 12:10:49 Micropuncture VSI 4FR kit opened to sterile field. 12:10:50 INFLATOR BasixTOUCH (JE8245) opened to sterile field. 12:10:51 TUBING Contrast Injection High Pressure (UAN438C) opened to sterile field. 12:10:52 TUBING Contrast Injection High Pressure (SMC822I) opened to sterile field. 12:10:53 TUBING Contrast Injection High Pressure (UHV940G) opened to sterile field. 12:10:55 GLIDE WIRE ANGLE 260cm (WF5602) opened to sterile field. 12:10:56 BENTSON 145cm wire (E90956) opened to sterile field. 12:10:57 STOPCOCK 3-Way Large Bore (I63744) opened to sterile field. 12:10:57 AGUILAR 260 wire (Y93660) opened to sterile field. 12:10:58 KIT, TRANSJUGULAR LIVER ACCESS R opened to sterile field. 12:11:00 Tegaderm 4 x 4 (1626W) opened to sterile field. 12:11:01 Sterile Angiographic Pack opened to sterile field. 12:11:02 Bag Decanter () opened to sterile field. 12:11:03 ACIST Manifold (56572) opened to sterile field. 12:11:04 ACIST Hand Control (74447) opened to sterile field. 12:11:06 ACIST Syringe (16581) opened to sterile field. 12:11:13 Time tracking: Regular hours (M-F 7:00 - 5:00) 12:11:31 Plan of Care:Hemodynamics will remain stable., Cardiac rhythm will remain stable., Comfort level will be maintained., Respiratory function will remain adequate., Patient/ family verbilizes understanding of procedure., Procedure tolerated without complication., Recovers from procedure without complications.. 12:11:43 Patient received from Outpatients to IR Alert and oriented. Tansferred to table in Supine position. 12:11:48 Warm blankets applied, and carrington hugger turned on for patient comfort. 12:11:49 Correct patient and procedure confirmed by team. 12:11:51 Signed procedure consent form obtained from patient. 12:12:10 H&P Date Dictated: 08/28/2017 Within 30 days and on chart.. 12:12:12 Pre-procedure instructions explained to patient. 12:12:13 Pre-op teaching completed and patient verbalized understanding. 12:12:16 Family in waiting room. 12:12:20 Patient NPO since Midnight. 12:12:32 Patient allergic to No known allergies 12:12:38 Is the patient allergic to Iodine/contrast media? No. 12:12:52 - 12:12:57 - 12:12:58 ----Pre-sedation anethsthesia assessment.----see anesthesia notes for answers to pre-sedation anesthesia assessment questions and monitoring of patient during procedure 12:14:34 IV patent on arrival in right hand with D5/.45%NaCl at O. 12:14:47 Right neck area was prepped with chlora-prep and draped in sterile fashion 12:14:55 Right abdomen area was prepped with chlora-prep and draped in sterile fashion 12:14:58 - 12:45:25 ECG and BP/O2 sat monitors applied to patient. 12:45:27 Vital chart was started 12:45:28 Baseline sample Acquired. 12:45:40 Baseline sample Acquired. 12:48:26 Physician arrived 12:48:37 --------ALL STOP TIME OUT------ 12:48:38 Final Timeout: patient, procedure, and site verified with staff and physician. All members of the team are in agreement. 12:49:15 Procedure started. 12:49:15 Full Disclosure recording started 12:49:28 Local anesthetic to right IJ vein with Lidocaine 1% by Samir Liz MD.INITIAL ACCESS ONLY 12:54:04 Zero performed for pressure channel P1 12:59:02 A [employer] COBRA 2 5Fr 65CM catheter ([id number]) was advanced over the wire and used for . 13:00:07 Venous access obtained using ultrasound guidance. 13:06:07 Zero performed for pressure channel P1 13:07:53 GLIDE CATHETER 5FR ANGLED 65cm (CG507) opened to sterile field. 13:11:53 AMPLATZ Short Taper 260cm wire ([id number]) opened to sterile field. 13:29:17 TORQUE DEVICE PLASTIC .038 ( TD01) opened to sterile field. 13:35:01 ROADRUNNER .035 260 glide wire (B78952) opened to sterile field. 13:55:13 CXI Catheter 90cm (O26592) opened to sterile field. 13:59:55 updated family 14:01:23 Inflate balloon Inflation number: 1 A Evercross 5 x 4 x 135 Balloon ([id number]) was prepped and advanced across the Undefined1, then inflated to 0 KRISTAN for 0:00 (min:sec). 14:04:15 Zero performed for pressure channel P1 14:11:43 VIATORR 10x8 stent ([id number]) was deployed across Undefined1 . 14:15:35 Inflate balloon Inflation number: 2 A Evercross 7 x 4 x 135 Balloon ([id number]) was prepped and advanced across the Undefined1, then inflated to 0 KRISTAN for 0:02 (min:sec). 14:19:37 Inflate balloon Inflation number: 3 A Evercross 8 x 6 x 135 Balloon ([id number]) was prepped and advanced across the Undefined1, then inflated to 0 KRISTAN for 0:00 (min:sec). 14:24:26 Zero performed for pressure channel P1 14:25:56 Inflate balloon Inflation number: 4 A Evercross 10 x 60 x 135 Balloon ([id number]) was prepped and advanced across the Undefined1, then inflated to 0 KRISTAN for 0:00 (min:sec). 14:30:36 Zero performed for pressure channel P1 14:32:52 Zero performed for pressure channel P1 14:33:50 Procedure ended.(Physican Out) 14:36:56 Fluoroscopy time 37.20 minutes. 14:37:04 Fluoroscopy dose: 2170 mGy 14:37:04 Flurop Dose total: 2170 14:37:12 Contrast amount:Isovue 300 45ml. 14:37:15 Procedure and supply charges have been captured, reviewed, submitted an d are correct. 14:38:48 Report given to ICU. 14:44:30 Vital chart was stopped Intervention Summary Intervention Notes Time ActionType Lesion and Equipment Used Action# Pressure Duration Attributes 14:01:23 Inflate Undefined1 Evercross 5 x 4 1 0 00:00 balloon x 135 Balloon ([id number]) 14:11:43 Deploy self Undefined1 VIATORR 10x8 1 expanding stent stent ([id number]) 14:15:35 Inflate Undefined1 Evercross 7 x 4 2 0 00:02 balloon x 135 Balloon ([id number]) 14:19:37 Inflate Undefined1 Evercross 8 x 6 3 0 00:00 balloon x 135 Balloon ([id number]) 14:25:56 Inflate Undefined1 Evercross 10 x 4 0 00:00 balloon 40 x 135 Balloon ([id number]) Device Usage Item Name Manufacture Quantity Catalog Number Hospital Part Current M inimal Lot# / Charge Number Stock Stock Serial# Code DIAGNOSTIC Cardinal 1 [id number] [id number] 918901 530312 5 MPA-2 5Fr Health catheter (250528F) [facility] Merit 1 [id number] 916084 394898 5 Pigtail VESSEL Medical SIZING 5Fr 65CM catheter ([id number]) Micropuncture VSI VASCULAR 1 7266V 058045 433352 5 VSI 4FR kit SOLUTIONS INFLATOR Merit 1 LX9131 694107 380182 706786 5 BasixTOUCH Medical (QH6338) TUBING Contrast Merit 3 DSH612N 704274 154867 903059 5 Injection High Medical Pressure (DQX727G) GLIDE WIRE Terumo 1 ZH8338 898313 458730 013225 5 ANGLE 260cm (CZ3473) BENTSON 145cm [facility] 1 L25160 663796 085060 5 [id number] wire (L23223) STOPCOCK 3-Way [facility] 1 R84510 626058 7203 351756 5 [id number] Large Bore (V33814) AGUILAR 260 wire [facility] 1 D88621 019606 77709 974162 5 [id number] (F37352) KIT, [facility] 1 D25367 341767 237719 5 [id number] TRANSJUGULAR LIVER ACCESS R Tegaderm 4 x 4 3M 1 1626W 996904 858051 201736 5 (1626W) Sterile Cardinal 1 [id number] 954787 595774 5 Angiographic Health Pack Bag Decanter Microtek 1 2001S 641282 85380 633874 5 (2001S) Medical Inc. ACIST Manifold Acist 1 69571 055708 830678 257173 5 (63016) Medical Systems Inc ACIST Hand Acist 1 57016 789681 545154 252208 5 Control (45471) [employer] Inc ACIST Syringe Acist 1 85183 469224 354676 765761 2 0 (99309) [employer] Merit Impress Merit 1 [id number] 808846 173324 858301 5 COBRA 2 5Fr Medical 65CM catheter (107827PV2) GLIDE CATHETER Terumo 1 CG507 520982 586679 5 5FR ANGLED 65cm (CG507) AMPLATZ Short [place] 1 [id number] 561265 949560 521170 5 Taper 260cm Scientific wire ([id number]) TORQUE DEVICE [place] 1 TD01 214194 312216 746907 5 PLASTIC .038 ( Scientific TD01) ROADRUNNER .035 Cook [facility] 1 B94668 251856 316826 211896 5 260 glide wire (N61857) CXI Catheter Cook Medical 1 U91312 974856 427239 159161 5 6565956 90cm (Y20392) Evercross 5 x 4 Medtronic 1 [id number] 216076 536770 949350 5 [id number] x 135 Balloon ([id number]) VIATORR 10x8 [place] 1 CCL010554 992315 677229 146784 5 [id number] stent ([id number]) Evercross 7 x 4 Medtronic 1 [id number] 804545 242374 774902 5 [id number] x 135 Balloon ([id number]) Evercross 8 x 6 Medtronic 1 [id number] 223228 929099 679046 5 [id number] x 135 Balloon ([id number]) Evercross 10 x Medtronic 1 [id number] 606468 693408 387276 5 [id number] 40 x 135 Balloon ([id number]) Signature Audit [place] Stage Time Signature Unsigned Intra-Procedure 08/28/2017 Keri Hodgson 2:44:24 PM RT(R) Signatures Monitor : Keri Hodgson RT Signature : Date : Time : [id number] [place] [address]
[2017-08-28 10:17] LABS: BASOPHILS 0.2 % (0-2); EOSINOPHILS 0.1 % (0-7); HEMATOCRIT 38.8 % (42.0-54.0); HEMOGLOBIN 13.4 g/dL (13.5-17.5); IMMATURE GRANULOCYTES 0.6 % (0-5); LYMPHOCYTES 12.8 % (15-50); MCHC 34.5 g/dL (31.0-37.0); MCV 95.6 fL (80.0-100.0); MEAN PLATELET VOLUME 10.1 fL (7.4-10.4); MONOCYTES 8.9 % (2-11); NEUTROPHILS 77.4 % (40-80); RBC 4.06 10x6/uL (4.20-6.10); RDW 14.1 % (11.5-14.5); WBC 17.2 10x3/uL (4.8-10.8)
[2017-08-28 10:24] LABS: APTT 44.3 SECONDS (22.8-39.4); INR 1.02 (0.85-1.17)
[2017-08-28 10:27] LABS: PLATELET COUNT 406 10x3/uL (130-400)
[2017-08-28 10:35] LABS: ALBUMIN 2.3 g/dL (3.4-5.0); ANION GAP 17.9 mmol/L (8-16); BILIRUBIN - DIRECT 0.24 mg/dL (0.00-0.30); BILIRUBIN - TOTAL 0.79 mg/dL (0.2-1.3); CALCIUM 9.2 mg/dL (8.5-10.1); CARBON DIOXIDE 20.7 mmol/L (21.0-32.0); CREATININE - SERUM 1.9 mg/dL (0.6-1.3); POTASSIUM - SERUM 4.6 mmol/L (3.5-5.1); PROTEIN - SERUM 6.9 g/dL (6.4-8.2)
[2017-08-29] VITALS (13 sets, daily range): BP systolic 88–134; BP diastolic 42–82; Ht 170.2 cm; Wt 89.0 kg
[2017-08-29 04:54] LABS: BASOPHILS 0.2 % (0-2); EOSINOPHILS 0.3 % (0-7); HEMATOCRIT 33.8 % (42.0-54.0); HEMOGLOBIN 11.3 g/dL (13.5-17.5); IMMATURE GRANULOCYTES 0.5 % (0-5); LYMPHOCYTES 11.9 % (15-50); MCH 31.9 pg (26.0-34.0); MCHC 33.4 g/dL (31.0-37.0); MCV 95.5 fL (80.0-100.0); MEAN PLATELET VOLUME 9.9 fL (7.4-10.4); MONOCYTES 11.1 % (2-11); RBC 3.54 10x6/uL (4.20-6.10); RDW 14.1 % (11.5-14.5); WBC 16.5 10x3/uL (4.8-10.8)
[2017-08-29 05:11] LABS: PLATELET COUNT 324 10x3/uL (130-400)
[2017-08-29 05:17] LABS: ALBUMIN 2.2 g/dL (3.4-5.0); ANION GAP 14.5 mmol/L (8-16); BILIRUBIN - TOTAL 0.54 mg/dL (0.2-1.3); CALCIUM 8.5 mg/dL (8.5-10.1); CARBON DIOXIDE 21.7 mmol/L (21.0-32.0); CREATININE - SERUM 1.6 mg/dL (0.6-1.3); POTASSIUM - SERUM 4.2 mmol/L (3.5-5.1)
[2017-08-30 03:58] VITALS: BP 82/44
[2017-08-30 05:44] LABS: BASOPHILS 0.4 % (0-2); EOSINOPHILS 0.4 % (0-7); HEMATOCRIT 30.9 % (42.0-54.0); HEMOGLOBIN 10.6 g/dL (13.5-17.5); IMMATURE GRANULOCYTES 0.5 % (0-5); LYMPHOCYTES 15.3 % (15-50); MCH 32.3 pg (26.0-34.0); MCHC 34.3 g/dL (31.0-37.0); MCV 94.2 fL (80.0-100.0); MEAN PLATELET VOLUME 9.8 fL (7.4-10.4); MONOCYTES 14.7 % (2-11); NEUTROPHILS 68.7 % (40-80); PLATELET COUNT 256 10x3/uL (130-400); RBC 3.28 10x6/uL (4.20-6.10); RDW 14.4 % (11.5-14.5); WBC 11.6 10x3/uL (4.8-10.8)
[2017-08-30 06:11] LABS: ALBUMIN 1.7 g/dL (3.4-5.0); ANION GAP 14.9 mmol/L (8-16); BILIRUBIN - TOTAL 0.44 mg/dL (0.2-1.3); CALCIUM 8.7 mg/dL (8.5-10.1); CARBON DIOXIDE 19.5 mmol/L (21.0-32.0); CREATININE - SERUM 1.2 mg/dL (0.6-1.3); POTASSIUM - SERUM 4.4 mmol/L (3.5-5.1); PROTEIN - SERUM 5.2 g/dL (6.4-8.2)
[2017-08-30 09:07] VITALS: BP 102/58
== END 2017-08-30 11:08 | disposition home or self-care (01) | DRG 406 ==
LOC: D.SDCHOLD 09:39 → D.MS 09:39 → D.ICU 09:39 → D.SDCHOLD 12:00 → D.ICU 15:01 → D.MS 08-29 14:23
PROVIDERS: Radiology Diagnostic Radiology
PROC: 06183J4 Bypass Portal Vein to Hepatic Vein with Synthetic Substitute, Percutaneous Approach (ICD-10-PCS; principal; 2017-08-28 12:00)
DX: K70.31 Alcoholic cirrhosis of liver with ascites (principal); F17.203 Nicotine dependence unspecified, with withdrawal; K72.90 Hepatic failure, unspecified without coma; J44.9 Chronic obstructive pulmonary disease, unspecified; E11.65 Type 2 diabetes mellitus with hyperglycemia

== ENCOUNTER → 2017-09-04 08:56 | Outpatient (CLI) | payer MEDICARE ==
[2017-08-29 10:40] VITALS: BMI 30.7
== END | disposition home or self-care (01) ==
LOC: D.US 09-03 13:00
DX: K74.60 Unspecified cirrhosis of liver (principal)

== ENCOUNTER → 2017-11-21 17:54 | Outpatient (CLI) | payer MEDICARE ==
[2017-08-29 10:40] VITALS: BMI 30.7
[2017-11-21 19:46] LABS: APPEARANCE CLEAR (CLEAR); COLOR YELLOW (YELLOW)
[2017-11-21 19:47] LABS: BILIRUBIN NEGATIVE (NEGATIVE); GLUCOSE NEGATIVE (NEGATIVE); KETONE NEGATIVE (NEGATIVE); NITRITE NEGATIVE (NEGATIVE); PROTEIN NEGATIVE (NEGATIVE); UROBILINOGEN NORMAL (NORMAL)
[2017-11-21 19:48] LABS: BACTERIA FEW /hpf (NONE SEEN)
== END | disposition home or self-care (01) ==
LOC: D.LABREF 17:54
PROVIDERS: Family Medicine
DX: N20.2 Calculus of kidney with calculus of ureter (principal); I10 Essential (primary) hypertension; R10.9 Unspecified abdominal pain; E11.9 Type 2 diabetes mellitus without complications; Z12.5 Encounter for screening for malignant neoplasm of prostate

== ENCOUNTER → 2017-11-30 15:22 | Outpatient (CLI) | payer MEDICARE ==
[2017-08-29 10:40] VITALS: BMI 30.7
[2017-11-30 21:49] LABS: APPEARANCE HAZY (CLEAR); BACTERIA MANY /hpf (NONE SEEN); BILIRUBIN NEGATIVE (NEGATIVE); COLOR YELLOW (YELLOW); GLUCOSE NEGATIVE (NEGATIVE); KETONE NEGATIVE (NEGATIVE); NITRITE POSITIVE (NEGATIVE); PROTEIN NEGATIVE (NEGATIVE); RED CELLS - URINE OCC /hpf (0-5); UROBILINOGEN NORMAL (NORMAL); WHITE CELLS - URINE 0-5 /hpf (0-5)
== END | disposition home or self-care (01) ==
LOC: D.LABREF 15:22
PROVIDERS: Family Medicine
DX: K70.31 Alcoholic cirrhosis of liver with ascites (principal); J44.0 Chronic obstructive pulmonary disease with (acute) lower respiratory infection; N39.0 Urinary tract infection, site not specified; Z12.5 Encounter for screening for malignant neoplasm of prostate

== ENCOUNTER → 2018-04-25 18:38 | Outpatient (CLI) | payer MEDICARE ==
[2017-08-29 10:40] VITALS: BMI 30.7
== END | disposition home or self-care (01) ==
LOC: D.LABREF 18:38
DX: J44.9 Chronic obstructive pulmonary disease, unspecified (principal); I73.9 Peripheral vascular disease, unspecified; R63.5 Abnormal weight gain; R18.8 Other ascites

== ENCOUNTER 2018-12-23 10:21 | Inpatient (IN) | payer MEDICARE ==
[~2018-12-23] VITALS: Ht 170.2 cm; Wt 95.3 kg
[2018-12-23] VITALS (7 sets, daily range): BP systolic 98–136; BP diastolic 44–69; BMI 32.9
[2018-12-23] MEDS ORDERED: TENORMIN100 MG PO (10:28)
[2018-12-23] MEDS ORDERED: RANITIDINE HCL150 M1 PO (10:29)
--- NOTE | 2018-12-23 10:42 | NUR ---
PT GIVEN URINAL AND ASKED TO PROVIDE URINE SAMPLE FOR ORDERED LABS.
[2018-12-23 10:52] LABS: HEMATOCRIT 33.6 % (42.0-54.0); HEMOGLOBIN 11.4 g/dL (13.5-17.5); MCH 35.3 pg (26.0-34.0); MCHC 33.9 g/dL (31.0-37.0); MEAN PLATELET VOLUME 10.1 fL (7.4-10.4); RBC 3.23 10x6/uL (4.20-6.10); RDW 17.1 % (11.5-14.5); WBC 6.5 10x3/uL (4.8-10.8)
[2018-12-23 11:09] LABS: PLATELET COUNT 123 10x3/uL (130-400)
[2018-12-23 11:15] LABS: ALBUMIN 1.9 g/dL (3.4-5.0); ANION GAP 10.9 mmol/L (8-16); BILIRUBIN - TOTAL 4.21 mg/dL (0.2-1.3); CALCIUM 7.8 mg/dL (8.5-10.1); CARBON DIOXIDE 29.6 mmol/L (21.0-32.0); CREATININE - SERUM 1.1 mg/dL (0.6-1.3); POTASSIUM - SERUM 3.5 mmol/L (3.5-5.1); PROTEIN - SERUM 6.1 g/dL (6.4-8.2)
--- NOTE | 2018-12-23 11:24 | NUR ---
URINE SAMPLE SENT TO LAB AT THIS TIME. PT VOIDED WITHOUT ANY NURSING INTERVENTION
--- NOTE | 2018-12-23 11:25 | NUR ---
BLADDER SCANNER SHOWED 156ML IN BLADDER AT THIS TIME. TREATING PROVIDER NOTIFIED OF RESULTS.
[2018-12-23 11:44] LABS: APPEARANCE HAZY (CLEAR); BACTERIA FEW /hpf (NEGATIVE); BILIRUBIN NEGATIVE (NEGATIVE); COLOR YELLOW (YELLOW); EPITHELIAL CELLS OCC /hpf (0-5); GLUCOSE NEGATIVE (NEGATIVE); KETONE NEGATIVE (NEGATIVE); NITRITE NEGATIVE (NEGATIVE); PROTEIN NEGATIVE (NEGATIVE); RED CELLS - URINE 0-5 /hpf (0-5); WHITE CELLS - URINE OCC /hpf (NEGATIVE)
--- NOTE | 2018-12-23 13:47 | NUR ---
NICODERM PATCH PLACE L UPPER ARM
[2018-12-23 13:56] LABS: BASOPHILS 1 % (0-2); LYMPHOCYTES 18 % (15-50); MONOCYTES 10 % (2-11); NEUTROPHILS 64 % (40-80)
[2018-12-23 13:57] LABS: PLATELET ESTIMATE DECREASED; TARGET CELLS 1+
--- NOTE | 2018-12-23 15:13 | MORECARE ---
CASE MANAGEMENT DISCHARGE SUMMARY PATIENT: JUD RIOS UNIT: [id number] ADM DATE: 12/23/18 AGE: 68 : 48 SEX: M ROOM/BED: D.2207 AUTHOR: ARANZA SNEED PHYSICIAN: REFERRING PHYSICIAN: CARLOS SEBASTIAN MD DATE OF SERVICE: 12/23/18 Discharge Plan Patient Name: JUD RIOS [facility] [facility] 1950 Planned Disposition: Home Anticipated Discharge Date: 12/25/18 Discharge Date: Expected LOS: 2 Initial Reviewer: [email or web address] Initial Review Date: 12/23/2018 Generated: 12/23/18 4:12 pm DCPIA - Discharge Planning Initial Assessment Updated by [email or web address]: Treva Barry on 12/23/18 3:10 pm * Is the patient Alert and Oriented? Yes * PCP Dr. Ford * [facility] * Preadmission Environment Home with Family * ADLs Partial Dependent * Partial ADLs (Assistance needed) Bathing Transfers * Equipment Cane Glucometer Rolling Walker Wheelchair * List name and contact numbers for known caregivers / representatives who currently or will assist patient after discharge: Cherise [facility] [phone] * Verbal permission to speak to the caregivers and representatives has been obtained from the patient. Yes * Community resources currently utilized Other * Please name any agencies selected above. House Calls * Additional services required to return to the preadmission environment? Yes * Can the patient safely return to the preadmission environment? Yes * Has this patient been hospitalized within the prior 30 days at any hospital? No Patient Name: JUD RIOS Page 70097 at 1513 All edits/amendments must be made on the electronic document DICTATION DATE: 12/23/181511 CAMPAIGN MARKETING SPECIALIST: PALLAVI 12/23/181511 RPT#: [id number] DC DATE: STATUS: ADM IN [facility] [address] [place] [address] END OF REPORT
--- NOTE | 2018-12-23 15:24 | MORECARE ---
CASE MANAGEMENT DISCHARGE SUMMARY PATIENT: JUD RIOS UNIT: [id number] ADM DATE: 12/23/18 AGE: 68 : 48 SEX: M ROOM/BED: D.2207 AUTHOR: NAREN,DOC PHYSICIAN: REFERRING PHYSICIAN: CARLOS SEBASTIAN MD DATE OF SERVICE: 12/23/18 Discharge Plan Patient Name: JUD RIOS Facility: [facility]:[place] : 1950 Planned Disposition: Home Anticipated Discharge Date: 12/25/18 Discharge Date: Expected LOS: 2 Initial Reviewer: [email or web address] Initial Review Date: 12/23/2018 Generated: 12/23/18 4:24 pm DCP- Discharge Planning Updated by [email or web address]: Treva Barry on 12/23/18 2:[address] DC PLAN: Return to his sisters at time of dc. ANTICIPATED DC NEEDS: May want a hospital bed. CM met with patient to complete initial dc planning assessment. CM educated patient on the CM role and verbal consent given by patient to complete assessment. CM verified patient's address, phone number, and emergency contact phone numbers. Patient lives at his sisters house and reports he needs assistance with his ADL's. At discharge patient plans to return to his sisters and feels this is a safe discharge. CM discussed availability of home health, rehab services, and medical equipment. Patient reports he has [facility] calls that checks in on him. Patient stated he may want a hospital bed at time of dc. CM explained that he would have to qualify for a Hospital bed and have a MD order this for him. Patient reports his sister will transport him home at time of discharge. CM will continue to follow and will assist as needed with dc plans/needs. Treva Barry RN, [facility] DCPIA - Discharge Planning Initial Assessment Updated by [email or web address]: Treva Barry on 12/23/18 3:10 pm * Is the patient Alert and Oriented? Yes * PCP Dr. Ford * [facility] * Preadmission Environment Home with Family * ADLs Partial Dependent * Partial ADLs (Assistance needed) Bathing Transfers * Equipment Cane Glucometer Rolling Walker Wheelchair * List name and contact numbers for known caregivers / representatives who currently or will assist patient after discharge: Cherise maya [phone] * Verbal permission to speak to the caregivers and representatives has been obtained from the patient. Yes * Community resources currently utilized Other * Please name any agencies selected above. House Calls * Additional services required to return to the preadmission environment? Yes * Can the patient safely return to the preadmission environment? Yes * Has this patient been hospitalized within the prior 30 days at any hospital? No Last DP export: 12/23/18 2:13 p Patient Name: UJD RIOS Page 52278 at 1524 All edits/amendments must be made on the electronic document DICTATION DATE: 12/23/181523 TIRE TECHNICIAN: PALLAVI 12/23/181523 RPT#: [id number] DC DATE: STATUS: ADM IN [facility] [address] [place] [address] END OF REPORT
[2018-12-23 17:08] LABS: INR 1.59 (0.85-1.17); PROTIME 18.3 SECONDS (11.6-15.0)
--- NOTE | 2018-12-23 17:10 | NUR ---
PT BP WAS TAKEN MANUAL 104/54. C/L IN REACH AT BEDSIDE
--- NOTE | 2018-12-23 19:50 | NUR ---
PT RESTING IN BED WITH EYES OPEN. ALERT AND ORIENTED X 3. DENIES ACUTE DISCOMFORT AT THIS TIME. NO NEEDS VOICED. O2 IS ON @ 2LPM PER NC. IV INFUSING TO RIGHT AC WITHOUT DIFFICULTY. NO REDNESS OR EDEMA NOTED AT THE INSERTION SITE. SR'S ARE UP X 2 IN BED. CALL LIGHT AND BEDSIDE TABLE ARE WITHIN EASY REACH.
--- NOTE | 2018-12-23 22:28 | NUR ---
PT RESTING IN BED WITH EYES CLOSED. NO ACUTE DISTRESS NOTED.
--- NOTE | 2018-12-23 23:45 | NUR ---
PT RESTING IN BED WITH EYES CLOSED.
--- NOTE | 2018-12-24 02:26 | NUR ---
I have reviewed this patient and I concur with the Shift Assessment completed by the Licensed Practical Nurse today this shift.
--- NOTE | 2018-12-24 02:27 | NUR ---
PT RESTING IN BED WITH EYES CLOSED. NO ACUTE DISTRESS NOTED.
[2018-12-24 04:00] VITALS: BP 91/40
--- NOTE | 2018-12-24 06:35 | NUR ---
PT RESTING QUIETLY IN BED WITH EYES CLOSED. NO ACUTE DISTRESS NOTED.
[2018-12-24 07:19] LABS: BASOPHILS 0.9 % (0-2); EOSINOPHILS 1.9 % (0-7); HEMATOCRIT 30.3 % (42.0-54.0); HEMOGLOBIN 10.1 g/dL (13.5-17.5); IMMATURE GRANULOCYTES 0.5 % (0-5); LYMPHOCYTES 42.3 % (15-50); MCH 34.6 pg (26.0-34.0); MCHC 33.3 g/dL (31.0-37.0); MCV 103.8 fL (80.0-100.0); MEAN PLATELET VOLUME 10.7 fL (7.4-10.4); MONOCYTES 21.3 % (2-11); NEUTROPHILS 33.1 % (40-80); PLATELET COUNT 121 10x3/uL (130-400); RBC 2.92 10x6/uL (4.20-6.10); RDW 17.1 % (11.5-14.5); WBC 6.4 10x3/uL (4.8-10.8)
--- NOTE | 2018-12-24 07:30 | NUR ---
REC'D IN BED AWAKE AND ALERT. RESP EVEN AND UNLABORD WITH NO DISTRESS NOTED. CAN EXPRESS NEEDS AND WANTS. NO C/O NOTED OR VOICED. ASSESSMENT COMPLETED. C/L IN REACH AT BEDSIDE.
[2018-12-24 07:39] LABS: INR 1.73 (0.85-1.17); PROTIME 19.6 SECONDS (11.6-15.0)
[2018-12-24 07:43] LABS: ALBUMIN 1.7 g/dL (3.4-5.0); ALKALINE PHOSPHATASE 111 U/L (46-116); ALT (SGPT) 21 U/L (10-68); AMYLASE - SERUM 35 U/L (25-115); BILIRUBIN - TOTAL 3.23 mg/dL (0.2-1.3); CALC OSMOLALITY 274 mosm/kg (275-300); CALCIUM 7.4 mg/dL (8.5-10.1); CARBON DIOXIDE 29.3 mmol/L (21.0-32.0); CHLORIDE - SERUM 101 mmol/L (98-107); LIPASE 139 U/L (73-393); PROTEIN - SERUM 5.5 g/dL (6.4-8.2); SODIUM 138 mmol/L (136-145); UREA NITROGEN 9 mg/dL (7-18); eGFR NON AFRICAN AMERICAN 78 mL/min (90-120)
[2018-12-24 07:45] LABS: GLUCOSE 102 mg/dL (74-106)
--- NOTE | 2018-12-24 07:54 | NUR ---
REC'D CALL FROM LAB WITH CRITICAL AMMONIA LEVEL OF 73. CALL WAS PLACED TO MILL LABORER AWAITING RESPONSE.
--- NOTE | 2018-12-24 08:00 | NUR ---
REC'D CALL BACK WITH NEW ORDERS FOR LACTULOSE 30 MG BID. PT MADE AWARE OF NEW ORDERS. C/L IN REACH AT BEDSIDE.
[2018-12-24 08:15] VITALS: BP 106/46
[2018-12-24 12:39] VITALS: BP 113/42
[2018-12-24 15:20] VITALS: Ht 170.2 cm; Wt 95.3 kg
[2018-12-24 16:02] VITALS: BP 101/52
[2018-12-24 22:56] VITALS: BP 108/61
[2018-12-25 01:40] VITALS: BP 124/47
[2018-12-25 04:58] VITALS: BP 120/54
[2018-12-25 05:17] LABS: BASOPHILS 0.6 % (0-2); EOSINOPHILS 1.9 % (0-7); HEMATOCRIT 30.7 % (42.0-54.0); HEMOGLOBIN 10.3 g/dL (13.5-17.5); IMMATURE GRANULOCYTES 0.3 % (0-5); LYMPHOCYTES 37.5 % (15-50); MCH 35.2 pg (26.0-34.0); MCHC 33.6 g/dL (31.0-37.0); MCV 104.8 fL (80.0-100.0); MEAN PLATELET VOLUME 10.5 fL (7.4-10.4); MONOCYTES 19.2 % (2-11); NEUTROPHILS 40.5 % (40-80); PLATELET COUNT 110 10x3/uL (130-400); RBC 2.93 10x6/uL (4.20-6.10); WBC 6.2 10x3/uL (4.8-10.8)
[2018-12-25 05:38] LABS: INR 1.66 (0.85-1.17)
[2018-12-25 05:53] LABS: ALBUMIN 1.7 g/dL (3.4-5.0); ALKALINE PHOSPHATASE 120 U/L (46-116); ALT (SGPT) 20 U/L (10-68); BILIRUBIN - TOTAL 2.45 mg/dL (0.2-1.3); CALC OSMOLALITY 279 mosm/kg (275-300); CALCIUM 7.2 mg/dL (8.5-10.1); CARBON DIOXIDE 26.4 mmol/L (21.0-32.0); CHLORIDE - SERUM 107 mmol/L (98-107); CREATININE - SERUM 0.9 mg/dL (0.6-1.3); GLUCOSE 123 mg/dL (74-106); POTASSIUM - SERUM 3.1 mmol/L (3.5-5.1); PROTEIN - SERUM 5.7 g/dL (6.4-8.2); SODIUM 141 mmol/L (136-145); UREA NITROGEN 7 mg/dL (7-18); eGFR NON AFRICAN AMERICAN 89 mL/min (90-120)
[2018-12-25 08:45] VITALS: BP 109/58
[2018-12-25 12:51] VITALS: BP 158/78
[2018-12-25 17:26] VITALS: BP 117/68
[2018-12-25 21:22] VITALS: BP 101/54
--- NOTE | 2018-12-25 23:02 | NUR ---
PATIENT IN BED ALERT AND ORENTED ABLE TO VOICE NEEDS AND WANTS TO STAFF. CALL LIGHT AND WATER IN REACH,O2 AT 2L VIA N/C. ALARM IN PLACE REFUSED TO PUT ON SCD'S AT THIS TIME. DENIES PAIN AT THIS TIME.
[2018-12-26] VITALS (9 sets, daily range): BP systolic 89–126; BP diastolic 37–48
--- NOTE | 2018-12-26 04:26 | NUR ---
NA HAS REFUSED INOUT CATH FOR UA X2 THIS SHIFT. FRI TIME STATED HE WOULD DO IT IN THE AM BUT STILL REFUSED AT THIS TIME.
[2018-12-26 06:07] LABS: BASOPHILS 0.6 % (0-2); EOSINOPHILS 1.4 % (0-7); IMMATURE GRANULOCYTES 0.5 % (0-5); MCH 35.3 pg (26.0-34.0); MCHC 32.7 g/dL (31.0-37.0); MEAN PLATELET VOLUME 11.1 fL (7.4-10.4); MONOCYTES 7.5 % (2-11); RDW 17.5 % (11.5-14.5)
[2018-12-26 06:20] LABS: INR 1.52 (0.85-1.17); PROTIME 17.7 SECONDS (11.6-15.0)
--- NOTE | 2018-12-26 06:21 | NUR ---
ASK IF HE WOULD DO THE IN AND OUT CATH FOR UA HE REFUSED ATEMPT #3.
[2018-12-26 06:23] LABS: HEMOGLOBIN 12.8 g/dL (13.5-17.5); RBC 3.63 10x6/uL (4.20-6.10); WBC 10.7 10x3/uL (4.8-10.8)
[2018-12-26 06:24] LABS: HEMATOCRIT 39.1 % (42.0-54.0); MCV 107.7 fL (80.0-100.0); PLATELET COUNT 134 10x3/uL (130-400)
[2018-12-26 06:38] LABS: ALBUMIN 2.1 g/dL (3.4-5.0); ANION GAP 16.6 mmol/L (8-16); BILIRUBIN - TOTAL 3.02 mg/dL (0.2-1.3); CALCIUM 7.8 mg/dL (8.5-10.1); CARBON DIOXIDE 22.6 mmol/L (21.0-32.0); CREATININE - SERUM 1.1 mg/dL (0.6-1.3); POTASSIUM - SERUM 3.2 mmol/L (3.5-5.1); PROTEIN - SERUM 6.6 g/dL (6.4-8.2)
--- NOTE | 2018-12-26 07:05 | NUR ---
AMMONIA 85 CH THIS AM ON 12-24-18 WAS 73 ON 12-25-18 WAS 57 CALL TO [facility] CALL BACK.
--- NOTE | 2018-12-26 07:15 | NUR ---
PATIENT IN ROOM. COVERS OFF. ROOM IS HOT. REQUESTED AND LOWERED TEMP IN ROOM. CL IN REACH BED ALARM ON. PATIENT ON RIGHT SIDE.
--- NOTE | 2018-12-26 09:32 | NUR ---
NUTRITION F/U PT NOW NPO FOR PROCEDURE. WILL PROVIDE DIET WHEN RESUMED, MONITOR PO INTAKE. RD FOLLOWING
--- NOTE | 2018-12-26 10:10 | NUR ---
CONSENTS SIGNED FOR A PARACENTESIS. PATIENT CALLED AND LET SOMEONE KNOW THAT THEY WILL BE HAVING THAT PROCEDURE TODAY. CL IN REACH. NO FURTHER NEEDS AT THIS TIME.
--- NOTE | 2018-12-26 10:26 | NUR ---
PATIENT TAKEN FOR PROCEDURE.
--- NOTE | 2018-12-26 11:34 | NUR ---
PATIENT BACK FROM PROCEDURE. 1800 ML PULLED. 4X4 AND TEGADERM DRESSING ON RLQ. VS STABLE. CL IN REACH BED ALARM ON COFFEE AND ICE CHIPS REQUESTED AND PROVIDED. TM
--- NOTE | 2018-12-26 11:57 | NUR ---
PATIENT LAYING ON LEFT SIDE. WANTS TO TALK TO DR DODGE. HE SAYS HE IS READY TO GO. "WE HAVE DONE ALL WE COULD DO FOR HIM." BP LOW. CL IN REACH. BED ALARM ON. WCTM
--- NOTE | 2018-12-26 12:28 | NUR ---
PATIENT READY TO LEAVE NOW. THREATENING TO LEAVE AMA. SHERRIE MELGAR FOR [facility] HAS SEEN PATIENT AND [facility] HAS SEEN HIM. [facility] HAS REQUESTED 2 MORE HOURS WHICH WOULD MAKE IT 1420 BEFORE PATIENT WOULD BE ABLE TO HAVE PAPERWORK. WELL ENSURE HIS VS ARE STABLE AFTER PROCEDURE. STATES THAT HE WILL TRY AND BE PATIENT AND TAKE LACTULOSE AT HOME SO HE DOESN'T BECOME CONFUSED. WILL SIGN AMA PAPERS IF HE HAS TO. TOLD HIM INSURANCE WOULDN'T PAY FOR THE HOSPITAL STAY IF HE LEFT AMA. CL IN REACH. TM
--- NOTE | 2018-12-26 13:48 | NUR ---
PATIENT LEAVING AMA. PAPERWORK SIGNED. WANTED A CARD FOR RADIOLOGY. THEY DO NOT HAVE ANY. IV THERAPY REMOVED FROM LEFT FOREARM. RIDE WILL MEET HIM AT THE DOOR. VOLUNTEERS CALLED TO COME WHEEL HIM OUT TO THE FRONT
--- NOTE | 2018-12-30 10:18 | MORECARE ---
CASE MANAGEMENT DISCHARGE SUMMARY PATIENT: JUD RIOS UNIT: [id number] ADM DATE: 12/23/18 AGE: 68 : 48 SEX: M ROOM/BED: D.2207 AUTHOR: NAREN,DOC PHYSICIAN: REFERRING PHYSICIAN: CARLOS SEBASTIAN MD DATE OF SERVICE: 12/30/18 Discharge Plan Patient Name: JUD RIOS Facility: [facility]:[place] : 1950 Planned Disposition: Home Anticipated Discharge Date: 12/25/18 Discharge Date: 12/26/2018 Expected LOS: 2 Initial Reviewer: [id number] Initial Review Date: 12/23/2018 Generated: 12/30/18 11:17 am DCP- Discharge Planning Updated by [id number]: Treva Barry on 12/23/18 2:[address] DC PLAN: Return to his sisters at time of dc. ANTICIPATED DC NEEDS: May want a hospital bed. CM met with patient to complete initial dc planning assessment. CM educated patient on the CM role and verbal consent given by patient to complete assessment. CM verified patient's address, phone number, and emergency contact phone numbers. Patient lives at his sisters house and reports he needs assistance with his ADL's. At discharge patient plans to return to his sisters and feels this is a safe discharge. CM discussed availability of home health, rehab services, and medical equipment. Patient reports he has [facility] calls that checks in on him. Patient stated he may want a hospital bed at time of dc. CM explained that he would have to qualify for a Hospital bed and have a MD order this for him. Patient reports his sister will transport him home at time of discharge. CM will continue to follow and will assist as needed with dc plans/needs. Treva Barry RN, [facility] DCPIA - Discharge Planning Initial Assessment Updated by [id number]: Treva Barry on 12/23/18 3:10 pm * Is the patient Alert and Oriented? Yes * PCP Dr. Ford * [facility] * Preadmission Environment Home with Family * ADLs Partial Dependent * Partial ADLs (Assistance needed) Bathing Transfers * Equipment Cane Glucometer Rolling Walker Wheelchair * List name and contact numbers for known caregivers / representatives who currently or will assist patient after discharge: Cherise maya [phone] * Verbal permission to speak to the caregivers and representatives has been obtained from the patient. Yes * Community resources currently utilized Other * Please name any agencies selected above. House Calls * Additional services required to return to the preadmission environment? Yes * Can the patient safely return to the preadmission environment? Yes * Has this patient been hospitalized within the prior 30 days at any hospital? No Last DP export: 12/23/18 2:24 p Patient Name: JUD RIOS Page [phone] at 1018 All edits/amendments must be made on the electronic document DICTATION DATE: 12/30/18 1017 BATCHING OPERATOR: PALLAVI 12/30/18 1017 RPT#: [id number] DC DATE:12/26/18 STATUS: DIS IN [facility] [address] [place] [address] END OF REPORT
== END 2018-12-26 13:52 | disposition left against medical advice (07) | DRG 433 ==
LOC: D.ER 10:21 → D.MS 14:35
PROVIDERS: Family Medicine; Radiology Vascular & Interventional Radiology; ADMIT Family Medicine; ATTEND Family Medicine
PROC: 0W9G3ZZ Drainage of Peritoneal Cavity, Percutaneous Approach (ICD-10-PCS; principal; 2018-12-26 10:51)
DX: K70.31 Alcoholic cirrhosis of liver with ascites (principal); F17.213 Nicotine dependence, cigarettes, with withdrawal; M87.9 Osteonecrosis, unspecified; E87.1 Hypo-osmolality and hyponatremia; F10.20 Alcohol dependence, uncomplicated; R16.1 Splenomegaly, not elsewhere classified; N20.0 Calculus of kidney; E83.51 Hypocalcemia; D53.9 Nutritional anemia, unspecified; E11.65 Type 2 diabetes mellitus with hyperglycemia; J44.9 Chronic obstructive pulmonary disease, unspecified; I10 Essential (primary) hypertension; I25.10 Atherosclerotic heart disease of native coronary artery without angina pectoris; K21.9 Gastro-esophageal reflux disease without esophagitis; M54.9 Dorsalgia, unspecified; M19.90 Unspecified osteoarthritis, unspecified site; F41.8 Other specified anxiety disorders; E66.9 Obesity, unspecified; Z68.32 Body mass index [BMI] 32.0-32.9, adult

== ENCOUNTER 2019-01-05 12:45 | Inpatient (IN) | payer MEDICARE ==
[~2019-01-05] VITALS: Ht 170.2 cm; Wt 102.1 kg
[~2019-01-05 12:45] MED LIST changes: +RANITIDINE HCL150 M1 PO; +TENORMIN100 MG PO
[2019-01-05 13:08] LABS: BASOPHILS 0.2 % (0-2); EOSINOPHILS 0.2 % (0-7); HEMATOCRIT 34.5 % (42.0-54.0); HEMOGLOBIN 11.8 g/dL (13.5-17.5); IMMATURE GRANULOCYTES 0.2 % (0-5); LYMPHOCYTES 15.2 % (15-50); MCH 35.5 pg (26.0-34.0); MCHC 34.2 g/dL (31.0-37.0); MCV 103.9 fL (80.0-100.0); MEAN PLATELET VOLUME 11.6 fL (7.4-10.4); MONOCYTES 13.9 % (2-11); NEUTROPHILS 70.3 % (40-80); PLATELET COUNT 119 10x3/uL (130-400); RBC 3.32 10x6/uL (4.20-6.10); WBC 13.1 10x3/uL (4.8-10.8)
[2019-01-05 13:21] LABS: ANION GAP 13.7 mmol/L (8-16); BILIRUBIN - TOTAL 6.98 mg/dL (0.2-1.3); CALCIUM 7.9 mg/dL (8.5-10.1); CARBON DIOXIDE 31.6 mmol/L (21.0-32.0); CREATININE - SERUM 1.5 mg/dL (0.6-1.3); POTASSIUM - SERUM 3.3 mmol/L (3.5-5.1)
[2019-01-05 15:15] VITALS: BP 155/83
[2019-01-05 15:45] VITALS: BP 134/53
[2019-01-05 16:54] LABS: INR 2.08 (0.85-1.17); PROTIME 22.7 SECONDS (11.6-15.0)
[2019-01-05 16:55] LABS: AMYLASE - SERUM 41 U/L (25-115); APTT 48.2 SECONDS (22.8-39.4); LIPASE 122 U/L (73-393)
[2019-01-05 17:12] VITALS: BP 102/45
[2019-01-05 17:45] LABS: APPEARANCE CLEAR (CLEAR); BILIRUBIN 2+ (NEGATIVE); COLOR AMBER (YELLOW); GLUCOSE NEGATIVE (NEGATIVE); KETONE NEGATIVE (NEGATIVE); NITRITE NEGATIVE (NEGATIVE); PROTEIN NEGATIVE (NEGATIVE)
[2019-01-05 17:46] LABS: BACTERIA FEW /hpf (NEGATIVE); EPITHELIAL CELLS 0-5 /hpf (0-5); RED CELLS - URINE 0-5 /hpf (0-5); WHITE CELLS - URINE 0-5 /hpf (NEGATIVE); YEAST <1+ /hpf (NONE SEEN)
[2019-01-05 17:47] VITALS: BP 102/45
--- NOTE | 2019-01-05 19:19 | NUR ---
PT IS AT REST WITH EYES CLOSED RESP EVEN AND UNLABERED AT 20 JAUNDICE NOTED AND LARGE FIRM ABD BED IS LOW AND LOCKED CALL LIGHT IN REACH
[2019-01-05] MEDS ORDERED: HYDROCODON-ACE1 EA10 PO (19:40)
[2019-01-05 20:32] VITALS: BP 115/45
--- NOTE | 2019-01-06 01:16 | NUR ---
I have reviewed this patient and I concur with the Shift Assessment completed by the Licensed Practical Nurse today this shift.
[2019-01-06 04:30] VITALS: BP 102/43
[2019-01-06 06:45] LABS: BASOPHILS 0.5 % (0-2); EOSINOPHILS 1.9 % (0-7); HEMATOCRIT 28.6 % (42.0-54.0); HEMOGLOBIN 9.6 g/dL (13.5-17.5); IMMATURE GRANULOCYTES 0.4 % (0-5); LYMPHOCYTES 32.6 % (15-50); MCH 34.5 pg (26.0-34.0); MCHC 33.6 g/dL (31.0-37.0); MCV 102.9 fL (80.0-100.0); MEAN PLATELET VOLUME 10.9 fL (7.4-10.4); MONOCYTES 12.3 % (2-11); NEUTROPHILS 52.3 % (40-80); PLATELET COUNT 106 10x3/uL (130-400); RBC 2.78 10x6/uL (4.20-6.10)
[2019-01-06 07:08] LABS: ALBUMIN 1.7 g/dL (3.4-5.0); ALKALINE PHOSPHATASE 122 U/L (46-116); ALT (SGPT) 16 U/L (10-68); BILIRUBIN - TOTAL 6.15 mg/dL (0.2-1.3); CALC OSMOLALITY 282 mosm/kg (275-300); CALCIUM 7.2 mg/dL (8.5-10.1); CHLORIDE - SERUM 106 mmol/L (98-107); GLUCOSE 110 mg/dL (74-106); MAGNESIUM - SERUM 1.2 mg/dL (1.8-2.4); PROTEIN - SERUM 5.9 g/dL (6.4-8.2); SODIUM 142 mmol/L (136-145); UREA NITROGEN 9 mg/dL (7-18); eGFR NON AFRICAN AMERICAN 78 mL/min (90-120)
[2019-01-06 07:11] LABS: POTASSIUM - SERUM 2.6 mmol/L (3.5-5.1)
--- NOTE | 2019-01-06 07:15 | NUR ---
PT RESTING IN BED, SHIFT ASSESSMENT PERFORMED. COMPLETE LINEN CHANGE PROVIDED AND ASSISTED PT WITH CHG BATH WIPES. CALL LIGHT WITHIN REACH. WILL CONT TO FOLLOW POC
[2019-01-06 07:33] LABS: INR 2.24 (0.85-1.17); PROTIME 24.1 SECONDS (11.6-15.0)
--- NOTE | 2019-01-06 08:00 | NUR ---
DARIO RN FROM [facility] NOTIFIED NURSE THAT PT INR TOO HIGH FOR PARA TODAY. NOTIFIED GUS FRIAS.
[2019-01-06 09:13] VITALS: BP 105/46
--- NOTE | 2019-01-06 12:10 | NUR ---
PT RESTING IN BED EATING LUNCH, CALL LIGHT WITHIN REACH, DENIES ANY NEEDS AT THIS TIME. WILL CONT TO FOLLOW POC
[2019-01-06 12:17] VITALS: BP 106/44
[2019-01-06 13:51] VITALS: Ht 170.2 cm; Wt 102.1 kg
[2019-01-06 17:24] VITALS: BP 109/86
[2019-01-06 20:00] VITALS: BP 94/50
--- NOTE | 2019-01-06 20:00 | NUR ---
PT ALERT, VOICES NEEDS, LUNGS CLEAR, O2 @ 2L VIA N/C, LEFT ARM PIV X2 WITH NS @ 100 CC/HR, WATCHING TV WITH NO C/O
--- NOTE | 2019-01-06 22:00 | NUR ---
PT C/O LEFT AC SALINE LOCK CAUSING DISCOMFORT, D/C'D IV SITE WITH CATH INTACT
[2019-01-07] VITALS: BP 98/51
[2019-01-07 04:00] VITALS: BP 94/47
[2019-01-07 05:28] LABS: BASOPHILS 0.9 % (0-2); HEMATOCRIT 27.3 % (42.0-54.0); HEMOGLOBIN 9.2 g/dL (13.5-17.5); IMMATURE GRANULOCYTES 0.4 % (0-5); LYMPHOCYTES 34.3 % (15-50); MCH 34.8 pg (26.0-34.0); MCHC 33.7 g/dL (31.0-37.0); MCV 103.4 fL (80.0-100.0); MEAN PLATELET VOLUME 10.8 fL (7.4-10.4); MONOCYTES 11.9 % (2-11); NEUTROPHILS 49.5 % (40-80); PLATELET COUNT 110 10x3/uL (130-400); RBC 2.64 10x6/uL (4.20-6.10); WBC 10.9 10x3/uL (4.8-10.8)
[2019-01-07 05:33] LABS: ALBUMIN 1.7 g/dL (3.4-5.0); ALKALINE PHOSPHATASE 121 U/L (46-116); CALC OSMOLALITY 280 mosm/kg (275-300); CARBON DIOXIDE 32.2 mmol/L (21.0-32.0); CHLORIDE - SERUM 107 mmol/L (98-107); GLUCOSE 96 mg/dL (74-106); POTASSIUM - SERUM 3.9 mmol/L (3.5-5.1); PROTEIN - SERUM 5.4 g/dL (6.4-8.2); SODIUM 142 mmol/L (136-145); UREA NITROGEN 7 mg/dL (7-18); eGFR NON AFRICAN AMERICAN 78 mL/min (90-120)
[2019-01-07 05:38] LABS: ALT (SGPT) 21 U/L (10-68); MAGNESIUM - SERUM 1.8 mg/dL (1.8-2.4)
--- NOTE | 2019-01-07 07:19 | NUR ---
REPORT RECEIVED. WILL CONTINUE WITH POC. PT CURRENTLY LYING ASLEEP WITH EYES CLOSED ON LEFT SIDE. CALL LIGHT W/I REACH. RR EVEN AND UNLABORED ON 2L 02. NS INFUSING @100ML/HR VIA L.HAND PIV. NO S/S OF DISTRESS NOTED. PT DENIES ANY NEEDS. WILL CTM.
[2019-01-07 07:45] LABS: INR 2.16 (0.85-1.17); PROTIME 23.4 SECONDS (11.6-15.0)
[2019-01-07 09:29] VITALS: BP 91/46
[2019-01-07 12:13] VITALS: BP 96/42
--- NOTE | 2019-01-07 12:52 | NUR ---
I have reviewed this patient and I concur with the Shift Assessment completed by the Licensed Practical Nurse today this shift.
--- NOTE | 2019-01-07 15:19 | MORECARE ---
CASE MANAGEMENT DISCHARGE SUMMARY PATIENT: JUD RIOS UNIT: [id number] ADM DATE: 01/06/19 AGE: 68 : 48 SEX: M ROOM/BED: D.0394 AUTHOR: NARENDOC PHYSICIAN: REFERRING PHYSICIAN: JARRET VALDEZ MD DATE OF SERVICE: 01/07/19 Discharge Plan Patient Name: JUD RIOS Facility: [facility]:[place] : 1950 Planned Disposition: Home Anticipated Discharge Date: Discharge Date: Expected LOS: Initial Reviewer: [email or web address] Initial Review Date: 01/07/2019 Generated: 01/07/19 4:19 pm Comments DCP- Discharge Planning Updated by [id number]: Aminata Erickson on 01/07/19 2:[address] Patient Name: JUD RIOS Admission Status: ER Accout number: [id number] Admission Date: 01-06-2019 : 1950 Admission Diagnosis: Attending: JARRET VALDEZ Current LOS: 1 Anticipated DC Date: Planned Disposition: Home Primary Insurance: MEDICARE A & B Discharge Planning Comments: CM MET WITH PATIENT ABOUT DC PLANNING/NEEDS. STATES PLANS TO DC WITH SISTER. STATES HAS HOUSE CALLS, MEALS PREPARED AND SOME OTHER HELP. DENIES NEEDS FOR HH, REHAB OR EQUIPMENT. CM WILL FOLLOW AND ASSIST NEEDED. Press Tender Smoke Signal: Aminata Erickson DCPIA - Discharge Planning Initial Assessment Updated by [id number]: Aminata Erickson on 01/07/19 3:15 pm * Is the patient Alert and Oriented? Yes * PCP [facility] * [facility] * Preadmission Environment Home Alone * Other Equipment POWER WC, WALKER, CANE, HOSPITAL BED, * List name and contact numbers for known caregivers / representatives who currently or will assist patient after discharge: JAVY, * Please name any agencies selected above. HAS HOUSE CALLS, AND MEALS PREPARED. * Additional services required to return to the preadmission environment? No * Can the patient safely return to the preadmission environment? Yes * Has this patient been hospitalized within the prior 30 days at any hospital? Yes Coverage Notice Reviewer: [id number] - Treva Barry Notice Issued Date-Time: 01/05/2019 16:00 Notice Type: Medicare Outpatient Observation Notice Notice Delivered To: Patient Relationship to Patient: Mend Worker Name: Delivery Method: HAND - Hand Delivered Joie Days: Prior Verbal Notification: Recipient Understood Notice: Recipient Signature: Med Rec Note Co-signed by Attending: Coverage Notice Comment: DOBBINS delivered, explained, signed by the patient, and placed in the chart. Signed form also left with patient. Treva Barry RN , [facility] Patient Name: JUD RIOS Page [phone] at 1519 All edits/amendments must be made on the electronic document DICTATION DATE: 01/07/191518 METAL CASKET ASSEMBLER: PALLAVI 01/07/191518 RPT#: [id number] DC DATE: STATUS: ADM IN [facility] [address] [place] [address] END OF REPORT
--- NOTE | 2019-01-07 16:16 | MORECARE ---
CASE MANAGEMENT DISCHARGE SUMMARY PATIENT: JUD RIOS UNIT: [id number] ADM DATE: 01/06/19 AGE: 68 : 48 SEX: M ROOM/BED: D.2134 AUTHOR: ARANZA SNEED PHYSICIAN: REFERRING PHYSICIAN: JARRET VALDEZ MD DATE OF SERVICE: 01/07/19 Discharge Plan Patient Name: JUD RIOS Facility: [facility]:[place] : 1950 Planned Disposition: Home Anticipated Discharge Date: Discharge Date: Expected LOS: Initial Reviewer: [email or web address] Initial Review Date: 01/07/2019 Generated: 01/07/19 5:16 pm Comments DCP- Discharge Planning Updated by [id number]: Aminata Erickson on 01/07/19 3:[address] Patient Name: JUD RIOS Encounter No: [id number] : 1950 Primary Insurance: MEDICARE A & B Anticipated DC Date: Planned Disposition: Home External Planned Provider: : DCP follow-up note: Patient and family in agreement with discharge plan. No changes to plan. Case management will follow and assist as needed. Aminata Erickson DCP- Discharge Planning Updated by [id number]: Aminata Erickson on 01/07/19 2:[address] Patient Name: JUD RIOS Admission Status: ER Accout number: [id number] Admission Date: 01-06-2019 : 1950 Admission Diagnosis: Attending: JARRET VALDEZ Current LOS: 1 Anticipated DC Date: Planned Disposition: Home Primary Insurance: MEDICARE A & B Discharge Planning Comments: CM MET WITH PATIENT ABOUT DC PLANNING/NEEDS. STATES PLANS TO DC WITH SISTER. STATES HAS HOUSE CALLS, MEALS PREPARED AND SOME OTHER HELP. DENIES NEEDS FOR HH, REHAB OR EQUIPMENT. CM WILL FOLLOW AND ASSIST NEEDED. Space Controller: Aminata Erickson DCPIA - Discharge Planning Initial Assessment Updated by [id number]: Aminata Erickson on 01/07/19 3:15 pm * Is the patient Alert and Oriented? Yes * PCP [facility] * [facility] * Preadmission Environment Home Alone * Other Equipment POWER WC, WALKER, CANE, HOSPITAL BED, * List name and contact numbers for known caregivers / representatives who currently or will assist patient after discharge: JAVY, * Please name any agencies selected above. HAS HOUSE CALLS, AND MEALS PREPARED. * Additional services required to return to the preadmission environment? No * Can the patient safely return to the preadmission environment? Yes * Has this patient been hospitalized within the prior 30 days at any hospital? Yes Coverage Notice Reviewer: [email or web address] Cesario Barry Notice Issued Date-Time: 01/05/2019 16:00 Notice Type: Medicare Outpatient Observation Notice Notice Delivered To: Patient Relationship to Patient: Chief Human Resources Officer Name: Delivery Method: HAND - Hand Delivered Joie Days: Prior Verbal Notification: Recipient Understood Notice: Recipient Signature: Med Rec Note Co-signed by Attending: Coverage Notice Comment: DOBBINS delivered, explained, signed by the patient, and placed in the chart. Signed form also left with patient. Treva Barry RN , [facility] Last DP export: 01/07/19 2:19 Patient Name: JUD RIOS Page 74415 at 1616 All edits/amendments must be made on the electronic document DICTATION DATE: 01/07/19 1616 QUALITY ASSURANCE DIRECTOR: PALLAVI 01/07/19 161 RPT#: [id number] DC DATE: STATUS: ADM IN [facility] [address] [place] [address] END OF REPORT
--- NOTE | 2019-01-07 16:43 | NUR ---
PT DISCHARGED HOME VIA WHEELCHAIR. TELEMETRY REMOVED AND RETURNED. PIV REMOVED WITH CATHETER TIP FULLY INTACT. PT SIGNED PROPER DISCHARGE INSTRUCTIONS AND REMOVED ALL VALUABLES FROM THE ROOM.
--- NOTE | 2019-01-09 08:11 | MORECARE ---
CASE MANAGEMENT DISCHARGE SUMMARY PATIENT: JUD RIOS UNIT: [id number] ADM DATE: 01/06/19 AGE: 68 : 48 SEX: M ROOM/BED: D.2134 AUTHOR: NARENDOC PHYSICIAN: REFERRING PHYSICIAN: JARRET VALDEZ MD DATE OF SERVICE: 01/09/19 Discharge Plan Patient Name: JUD RIOS Facility: [facility]:[place] : 1950 Planned Disposition: Home Anticipated Discharge Date: 01/07/19 Discharge Date: 01/07/2019 Expected LOS: 1 Initial Reviewer: [email or web address] Initial Review Date: 01/07/2019 Generated: 01/09/19 9:10 am Comments DCP- Discharge Planning Updated by [id number]: Aminata Erickson on 01/07/19 3:[address] Patient Name: JUD RIOS Encounter No: [id number] : 1950 Primary Insurance: MEDICARE A & B Anticipated DC Date: Planned Disposition: Home External Planned Provider: : DCP follow-up note: Patient and family in agreement with discharge plan. No changes to plan. Case management will follow and assist as needed. Aminata Erickson DCP- Discharge Planning Updated by [id number]: Aminata Erickson on 01/07/19 2:[address] Patient Name: JUD RIOS Admission Status: ER Accout number: [id number] Admission Date: 01-06-2019 : 1950 Admission Diagnosis: Attending: JARRET VALDEZ Current LOS: 1 Anticipated DC Date: Planned Disposition: Home Primary Insurance: MEDICARE A & B Discharge Planning Comments: CM MET WITH PATIENT ABOUT DC PLANNING/NEEDS. STATES PLANS TO DC WITH SISTER. STATES HAS HOUSE CALLS, MEALS PREPARED AND SOME OTHER HELP. DENIES NEEDS FOR HH, REHAB OR EQUIPMENT. CM WILL FOLLOW AND ASSIST NEEDED. Multiple Sclerosis Nurse: Aminata Erickson DCPIA - Discharge Planning Initial Assessment Updated by [id number]: Aminata Erickson on 01/07/19 3:15 pm * Is the patient Alert and Oriented? Yes * PCP [facility] * [facility] * Preadmission Environment Home Alone * Other Equipment POWER WC, WALKER, CANE, HOSPITAL BED, * List name and contact numbers for known caregivers / representatives who currently or will assist patient after discharge: JAVY, * Please name any agencies selected above. HAS HOUSE CALLS, AND MEALS PREPARED. * Additional services required to return to the preadmission environment? No * Can the patient safely return to the preadmission environment? Yes * Has this patient been hospitalized within the prior 30 days at any hospital? Yes Coverage Notice Reviewer: [id number] - Treva Barry Notice Issued Date-Time: 01/05/2019 16:00 Notice Type: Medicare Outpatient Observation Notice Notice Delivered To: Patient Relationship to Patient: Fixed Income Portfolio Manager Name: Delivery Method: HAND - Hand Delivered Joie Days: Prior Verbal Notification: Recipient Understood Notice: Recipient Signature: Med Rec Note Co-signed by Attending: Coverage Notice Comment: DOBBINS delivered, explained, signed by the patient, and placed in the chart. Signed form also left with patient. Treva Barry RN , [facility] Last DP export: 01/07/19 3:16 Patient Name: JUD RIOS Page [phone] at 0811 All edits/amendments must be made on the electronic document DICTATION DATE: 01/09/19809 SENIOR PIPING DESIGNER: PALLAVI 01/09/19809 RPT#: [id number] DC DATE:01/07/19 STATUS: DIS IN [facility] [address] [place] [address] END OF REPORT
[2019-01-09 14:09] LABS: OVA + PARASITE EXAM Final report (())
== END 2019-01-07 16:44 | disposition home or self-care (01) | DRG 432 ==
LOC: D.ER 12:45 → D.M2 14:26 → OBSVTIME 14:26 → D.M2 14:26
PROVIDERS: Emergency Medicine; Family Medicine; Radiology Diagnostic Radiology; Radiology Vascular & Interventional Radiology; ADMIT Internal Medicine Nephrology; ATTEND Internal Medicine Nephrology
DX: K70.31 Alcoholic cirrhosis of liver with ascites (principal); J96.21 Acute and chronic respiratory failure with hypoxia; F17.213 Nicotine dependence, cigarettes, with withdrawal; N17.9 Acute kidney failure, unspecified; E87.6 Hypokalemia; R00.0 Tachycardia, unspecified; D53.9 Nutritional anemia, unspecified; J44.9 Chronic obstructive pulmonary disease, unspecified; E11.65 Type 2 diabetes mellitus with hyperglycemia; I10 Essential (primary) hypertension; I25.10 Atherosclerotic heart disease of native coronary artery without angina pectoris; K21.9 Gastro-esophageal reflux disease without esophagitis; G89.29 Other chronic pain; M54.9 Dorsalgia, unspecified; F41.8 Other specified anxiety disorders; E66.9 Obesity, unspecified; Z68.35 Body mass index [BMI] 35.0-35.9, adult

== ENCOUNTER 2019-02-27 10:44 | Emergency (ER) | payer MEDICARE ==
[~2019-02-27] VITALS: Ht 170.2 cm; Wt 90.9 kg
[~2019-02-27 10:44] MED LIST changes: +HYDROCODON-ACE1 EA10 PO
[2019-02-27 10:46] VITALS: Ht 170.2 cm; Wt 90.9 kg
[2019-02-27 11:27] LABS: CALC OSMOLALITY 272 mosm/kg (275-300); CHLORIDE - SERUM 101 mmol/L (98-107); CREATININE - SERUM 1.1 mg/dL (0.6-1.3); POTASSIUM - SERUM 3.6 mmol/L (3.5-5.1); SODIUM 136 mmol/L (136-145); UREA NITROGEN 8 mg/dL (7-18); eGFR NON AFRICAN AMERICAN 70 mL/min (90-120)
[2019-02-27 11:28] LABS: GLUCOSE 156 mg/dL (74-106)
[2019-02-27 11:36] LABS: ALBUMIN 2.4 g/dL (3.4-5.0); ALKALINE PHOSPHATASE 164 U/L (46-116); ALT (SGPT) 12 U/L (10-68); AMYLASE - SERUM 35 U/L (25-115); BILIRUBIN - TOTAL 5.33 mg/dL (0.2-1.3); LIPASE 154 U/L (73-393); PROTEIN - SERUM 7.3 g/dL (6.4-8.2); TROPONIN-I < 0.017 ng/mL (0.000-0.060)
[2019-02-27 12:48] LABS: APPEARANCE HAZY (CLEAR); BILIRUBIN 1+ (NEGATIVE); COLOR AMBER (YELLOW); GLUCOSE NEGATIVE (NEGATIVE); KETONE SMALL mg/dL (NEGATIVE); NITRITE NEGATIVE (NEGATIVE); PROTEIN NEGATIVE (NEGATIVE); SPECIFIC GRAVITY 1.025 (1.005-1.020)
[2019-02-27 12:49] LABS: WHITE CELLS - URINE 0-5 /hpf (NEGATIVE)
[2019-02-27 12:50] LABS: BACTERIA MODERATE /hpf (NEGATIVE); EPITHELIAL CELLS 0-5 /hpf (0-5); HYALINE CAST 0-5 /lpf (NONE SEEN); MUCUS <1+ /lpf (NONE SEEN)
[2019-02-27 13:09] LABS: BASOPHILS 0.5 % (0-2); EOSINOPHILS 0.6 % (0-7); HEMOGLOBIN 10.7 g/dL (13.5-17.5); LYMPHOCYTES 22.3 % (15-50); MCH 34.7 pg (26.0-34.0); MCHC 35.5 g/dL (31.0-37.0); MCV 100.6 fL (80.0-100.0); MEAN PLATELET VOLUME 10.8 fL (7.4-10.4); MONOCYTES 7.7 % (2-11); NEUTROPHILS 68.9 % (40-80); PLATELET COUNT 138 10x3/uL (130-400); RBC 3.08 10x6/uL (4.20-6.10); RDW 16.4 % (11.5-14.5); WBC 10.9 10x3/uL (4.8-10.8)
[2019-02-27] MEDS ORDERED: ZOFRAN ODT4 MG/UDTAB PO (13:48)
[2019-02-27 15:41] VITALS: BP 116/53
== END 2019-02-27 15:43 | disposition home or self-care (01) ==
LOC: D.ER 10:44
PROVIDERS: Family Medicine
DX: R10.9 Unspecified abdominal pain (principal); E80.7 Disorder of bilirubin metabolism, unspecified; I10 Essential (primary) hypertension; Z72.0 Tobacco use; J44.9 Chronic obstructive pulmonary disease, unspecified; K74.60 Unspecified cirrhosis of liver